=== PATIENT | male | born 1980 | race Caucasian/White ===

== ENCOUNTER 2022-04-19 19:40 | Outpatient (CLI) | payer MEDICARE, SELFPAY ==
[2022-04-19 20:37] LABS: D Dimer 0.87 ug/mIFEU (0-0.59)
== END 2022-04-19 19:41 | disposition home or self-care (01) ==
PROVIDERS: Visit Provider Nurse Practitioner Family
DX: I82.402 Acute embolism and thrombosis of unspecified deep veins of left lower extremity (principal)
CPT/HCPCS: 85378

== ENCOUNTER 2022-04-20 12:28 | Emergency (ER) | payer MEDICARE, SELFPAY ==
[2022-04-20 12:57] VITALS: BP 136/96; PULSE 109; RESP 14; O2SAT 97; BMI 36.1
--- NOTE | 2022-04-20 13:34 | ED_ITS ---
Documented by User: YARIEL Hilton 04/21/22 07:09 HPI - Extremity Problem General: Chief complaint: General Medical Stated complaint: states he needs a CT for a bloodclot in leg Time Seen by Provider: 04/20/22 13:12 Source: patient Mode of arrival: ambulatory Limitations: no limitations History of Present Illness: Patient is a nice 42-year-old male who presents to ED today after he was told to come here by [facility] for a possible chest CTA to evaluate for a PE based on recent left lower extremity ultrasound results. Patient tells me approximately a month ago he began having some pain to his left medial thigh. Patient states pain has moved distally and now has pain from the medial aspect of his thigh down to his medial lower leg and can feel a palpable cord. Patient states he was evaluated at [facility] and had an ultrasound performed. Results of the ultrasound are attached below: US/ROR venous duplex LE LT IMPRESSION: 1. No sign of deep vein thrombosis. 2. Superficial venous thrombosis involving the greater saphenous vein from about the level of the upper thigh distally to about mid calf region Patient states he was told to come to the ED for a CTA to evaluate for a PE. Patient states he is not having any chest pain, shortness of breath, or difficulty breathing. He has not noticed any exercise intolerance. MD Complaint: extremity pain Onset (ago): week(s) Pain Consistency: constant Location: left and lower extremity Radiation: none Relieving factors: nothing Exacerbating factors: nothing Associated symptoms: Reports no associated symptoms; Deny chest pain or fever(s) Review of Systems Const: Denies: fever(s), chills, body aches, fatigue or malaise Card: Denies: chest pain, palpitations, irregular heart rhythm, edema, lightheadedness, syncope, pre-syncope, dyspnea on exertion or orthopnea Resp: Denies: dyspnea Musc: Reports: extremity pain and extremity swelling; Denies: joint pain, joint swelling or joint redness Neuro: Denies: numbness in extremities, weakness in extremities or sensory changes Course Vital Signs: Vital signs: Vital Signs Temperature 97.7 F 04/20/22 14:11 Pulse Rate 73 04/20/22 14:11 Respiratory Rate 14 04/20/22 12:57 Blood Pressure 145/95 04/20/22 14:11 Pulse Oximetry 98 04/20/22 14:11 MDM - Extremity (Nontraumatic) Medical Decision Making Patient has a superficial venous thrombosis to his greater saphenous vein. Due to the length of thrombus and the proximity to the saphenofemoral junction the guidelines are to treat with full anticoagulation for 3 months. Given the fact that patient has no evidence for DVT on his US and he has no complaints of chest pain, SOB, or exercise intolerance and coupled with his normal vital signs-I would have an extremely low suspicion for PE at this time thus I do not feel CTA imaging is necessary. Return to ED precautions given. Lab Data : 04/20/22 13:58 04/20/22 13:58 Laboratory Results WBC 6.2 10^3/uL (4.0-10.0) 04/20/22 13:58 RBC 5.34 10^6/uL (4.1-5.3) H 04/20/22 13:58 Hgb 16.2 g/dL (11.7-16.6) 04/20/22 13:58 Hct 46.0 % (42.0-52.0) 04/20/22 13:58 MCV 86.1 fl (80-94) 04/20/22 13:58 MCH 30.3 pg (28.0-34.0) 04/20/22 13:58 MCHC 35.2 g/dL (30.0-36.0) 04/20/22 13:58 RDW 12.6 % (12.1-15.1) 04/20/22 13:58 Plt Count 229 10^3/cmm (130-400) 04/20/22 13:58 MPV 9.9 fL (7.4-10.4) 04/20/22 13:58 Neut % (Auto) 66.8 % 04/20/22 13:58 Lymph % (Auto) 22.6 % 04/20/22 13:58 Charlton % (Auto) 5.7 % 04/20/22 13:58 Eos % (Auto) 4.1 % 04/20/22 13:58 Baso % (Auto) 0.5 % 04/20/22 13:58 Neut # (Auto) 4.12 10^3/uL (1.8-7.7) 04/20/22 13:58 Lymph # (Auto) 1.4 10^3/uL (0.8-4.8) 04/20/22 13:58 Charlton # (Auto) 0.4 10^3/uL (0.2-0.9) 04/20/22 13:58 Eos # (Auto) 0.3 10^3/uL (0.0-0.8) 04/20/22 13:58 Baso # (Auto) 0.0 10^3/uL (0.0-0.1) 04/20/22 13:58 Nucleated RBC % (auto) 0 % 04/20/22 13:58 Nucleated RBCs # 0.0 /100WBC 04/20/22 13:58 Sodium 137 mmol/L (136-145) 04/20/22 13:58 Potassium 4.0 mmol/L (3.5-5.1) 04/20/22 13:58 Chloride 103 mmol/L (98-107) 04/20/22 13:58 Carbon Dioxide 25 mmol/L (22-29) 04/20/22 13:58 Anion Gap 13.0 (5-19) 04/20/22 13:58 BUN 13 mg/dL (6-20) 04/20/22 13:58 Creatinine 0.7 mg/dL (0.7-1.2) 04/20/22 13:58 GFR Calculation 124.9 mL/min (90-130) 04/20/22 13:58 Glucose 93 mg/dL (65-115) 04/20/22 13:58 Calculated Osmolality 284 mOsm/kg (285-295) L 04/20/22 13:58 Calcium 9.4 mg/dL (8.5-10.5) 04/20/22 13:58 Total Bilirubin 0.4 mg/dL (0.15-1.2) 04/20/22 13:58 AST 15 U/L (0-40) 04/20/22 13:58 ALT 21 U/L (0-41) 04/20/22 13:58 Alkaline Phosphatase 78 IU/L (40-130) 04/20/22 13:58 Total Protein 7.7 g/dL (6.6-8.7) 04/20/22 13:58 Albumin 4.6 g/dL (3.5-5.2) 04/20/22 13:58 Globulin 3.1 g/dL (1.3-4.6) 04/20/22 13:58 Discharge Plan Discharge Patient Disposition: Home Clinical Impression: Acute superficial venous thrombosis of left lower extremity Condition: Stable Prescriptions: New Eliquis DVT-PE Treat 30D Start 5 mg (74 tabs) tablets,dose pack See Rx Instructions .ROUTE .COMPLEX Qty: 74 0RF Rx Instructions: orally per package directions Discharge Orders: Discharge ED (Routine); Ordered 04/20/22 Ordered By: Lalita Palm Patient Instructions: Thrombophlebitis - Superficial Activity Restrictions/Additional Instructions: As we discussed guidelines for treatment of your superficial venous thrombosis due to the location and length as anticoagulation for a minimum of 3 months. You have been provided a prescription for Eliquis that you need to start imme diately. Please follow-up with your primary care provider in 1 to 2 weeks for further evaluation and possible repeat ultrasound imaging. Coding Level of Care Code ED Fabrication Technician for Chg Fwd Documented by User: Jakub Holley DO 04/29/22 16:05 HPI - Extremity Problem General: Chief complaint: General Medical Stated complaint: states he needs a CT for a bloodclot in leg Time Seen by Provider: 04/20/22 13:12 Course Vital Signs: Vital signs: Vital Signs Temperature 97.7 F 04/20/22 14:11 Pulse Rate 73 04/20/22 14:11 Respiratory Rate 14 04/20/22 12:57 Blood Pressure 145/95 04/20/22 14:11 Pulse Oximetry 98 04/20/22 14:11 MDM - Extremity (Nontraumatic) Medical Decision Making Patient has a superficial venous thrombosis to his greater saphenous vein. Due to the length of thrombus and the proximity to the saphenofemoral junction the guidelines are to treat with full anticoagulation for 3 months. Given the fact that patient has no evidence for DVT on his US and he has no complaints of chest pain, SOB, or exercise intolerance and coupled with his normal vital signs-I would have an extremely low suspicion for PE at this time thus I do not feel CTA imaging is necessary. Return to ED precautions given. Chart reviewed and patient discussed with midlevel. Agree with assessment and plan. Lab Data : 04/20/22 13:58 04/20/22 13:58 Laboratory Results WBC 6.2 10^3/uL (4.0-10.0) 04/20/22 13:58 RBC 5.34 10^6/uL (4.1-5.3) H 04/20/22 13:58 Hgb 16.2 g/dL (11.7-16.6) 04/20/22 13:58 Hct 46.0 % (42.0-52.0) 04/20/22 13:58 MCV 86.1 fl (80-94) 04/20/22 13:58 MCH 30.3 pg (28.0-34.0) 04/20/22 13:58 MCHC 35.2 g/dL (30.0-36.0) 04/20/22 13:58 RDW 12.6 % (12.1-15.1) 04/20/22 13:58 Plt Count 229 10^3/cmm (130-400) 04/20/22 13:58 MPV 9.9 fL (7.4-10.4) 04/20/22 13:58 Neut % (Auto) 66.8 % 04/20/22 13:58 Lymph % (Auto) 22.6 % 04/20/22 13:58 Charlton % (Auto) 5.7 % 04/20/22 13:58 Eos % (Auto) 4.1 % 04/20/22 13:58 Baso % (Auto) 0.5 % 04/20/22 13:58 Neut # (Auto) 4.12 10^3/uL (1.8-7.7) 04/20/22 13:58 Lymph # (Auto) 1.4 10^3/uL (0.8-4.8) 04/20/22 13:58 Charlton # (Auto) 0.4 10^3/uL (0.2-0.9) 04/20/22 13:58 Eos # (Auto) 0.3 10^3/uL (0.0-0.8) 04/20/22 13:58 Baso # (Auto) 0.0 10^3/uL (0.0-0.1) 04/20/22 13:58 Nucleated RBC % (auto) 0 % 04/20/22 13:58 Nucleated RBCs # 0.0 /100WBC 04/20/22 13:58 Sodium 137 mmol/L (136-145) 04/20/22 13:58 Potassium 4.0 mmol/L (3.5-5.1) 04/20/22 13:58 Chloride 103 mmol/L (98-107) 04/20/22 13:58 Carbon Dioxide 25 mmol/L (22-29) 04/20/22 13:58 Anion Gap 13.0 (5-19) 04/20/22 13:58 BUN 13 mg/dL (6-20) 04/20/22 13:58 Creatinine 0.7 mg/dL (0.7-1.2) 04/20/22 13:58 GFR Calculation 124.9 mL/min (90-130) 04/20/22 13:58 Glucose 93 mg/dL (65-115) 04/20/22 13:58 Calculated Osmolality 284 mOsm/kg (285-295) L 04/20/22 13:58 Calcium 9.4 mg/dL (8.5-10.5) 04/20/22 13:58 Total Bilirubin 0.4 mg/dL (0.15-1.2) 04/20/22 13:58 AST 15 U/L (0-40) 04/20/22 13:58 ALT 21 U/L (0-41) 04/20/22 13:58 Alkaline Phosphatase 78 IU/L (40-130) 04/20/22 13:58 Total Protein 7.7 g/dL (6.6-8.7) 04/20/22 13:58 Albumin 4.6 g/dL (3.5-5.2) 04/20/22 13:58 Globulin 3.1 g/dL (1.3-4.6) 04/20/22 13:58 Discharge Plan Discharge Patient Disposition: Home Clinical Impression: Acute superficial venous thrombosis of left lower extremity Condition: Stable Prescriptions: New Eliquis DVT-PE Treat 30D Start 5 mg (74 tabs) tablets,dose pack See Rx Instructions .ROUTE .COMPLEX Qty: 74 0RF Rx Instructions: orally per package directions Discharge Orders: Discharge ED (Routine); Ordered 04/20/22 Ordered By: Lalita Palm Patient Instructions: Thrombophlebitis - Superficial Activity Restrictions/Additional Instructions: As we discussed guidelines for treatment of your superficial venous thrombosis due to the location and length as anticoagulation for a minimum of 3 months. You have been provided a prescription for Eliquis that you need to start immediately. Please follow-up with your primary care provider in 1 to 2 weeks for further evaluation and possible repeat ultrasound imaging. Coding Level of Care Code ED Fabrication Technician for Fernando Bhatti
[2022-04-20 14:03] LABS: Basophils % 0.5 %; Eosinophils # 0.3 10^3/uL (0.0-0.8); Eosinophils % 4.1 %; Hemoglobin 16.2 g/dL (11.7-16.6); Lymphocytes # 1.4 10^3/uL (0.8-4.8); Lymphocytes % 22.6 %; Mean Corpuscular HGB Conc 35.2 g/dL (30.0-36.0); Mean Corpuscular Hemoglobin 30.3 pg (28.0-34.0); Mean Corpuscular Volume 86.1 fl (80-94); Mean Platelet Volume 9.9 fL (7.4-10.4); Monocytes # 0.4 10^3/uL (0.2-0.9); Monocytes % 5.7 %; Neutrophils # 4.12 10^3/uL (1.8-7.7); Neutrophils % 66.8 %; Nucleated Red Blood Cells % 0 %; Platelet Count 229 10^3/cmm (130-400); Red Blood Count 5.34 10^6/uL (4.1-5.3); Red Cell Distribution Width 12.6 % (12.1-15.1); White Blood Count 6.2 10^3/uL (4.0-10.0)
[2022-04-20 14:11] VITALS: BP 145/95; PULSE 73; TEMP 36.5; O2SAT 98
[2022-04-20 15:21] LABS: Alanine Aminotransferase 21 U/L (0-41); Albumin Level 4.6 g/dL (3.5-5.2); Alkaline Phosphatase 78 IU/L (40-130); Aspartate Amino Transferase 15 U/L (0-40); Blood Urea Nitrogen 13 mg/dL (6-20); Calcium 9.4 mg/dL (8.5-10.5); Carbon Dioxide 25 mmol/L (22-29); Chloride 103 mmol/L (98-107); Globulin 3.1 g/dL (1.3-4.6); Glomerular Filtration Rate 124.9 mL/min (90-130); Glucose 93 mg/dL (65-115); Osmolality Calculated 284 mOsm/kg (285-295); Sodium 137 mmol/L (136-145); Total Bilirubin 0.4 mg/dL (0.15-1.2); Total Protein 7.7 g/dL (6.6-8.7)
== END 2022-04-20 16:39 | disposition home or self-care (01) ==
PROVIDERS: Emergency Provider Physician Assistant
DX: I82.812 Embolism and thrombosis of superficial veins of left lower extremity (principal); M79.89 Other specified soft tissue disorders; M79.662 Pain in left lower leg
CPT/HCPCS: 80053; 85025; 99283

== ENCOUNTER 2022-09-13 11:56 | Outpatient (CLI) | payer MEDICARE, SELFPAY ==
--- NOTE | 2022-09-13 | MR_ITS ---
WS: [id number] MRI LUMBAR SPINE WITH AND WITHOUT CONTRAST. HISTORY: MS HISTORY, back pain. COMPARISON: None available. TECHNIQUE: Sagittal and axial multisequence imaging is submitted. Postcontrast imaging, MultiHance 20 mL IV. Seen on this sagittal survey there is at slight increased signal in the mid thoracic cord at the T6-7 level. May be related to artifact, mild demyelinating disease or a small syrinx. Normal lumbar alignment with no compression fractures or marrow edema. Mild disc space narrowing and desiccation at L4-5 and L5-S1. No fractures. Conus terminates normally at L1-2 disc level. L1-L2: Normal. L2-L3: Normal. L3-L4: Mild ligamentum flavum and facet arthritis. Shallow LEFT foraminal disc protrusion. L4-L5: Mild annular disc bulging. Mild ligamentum flavum and facet arthritis. Mild encroachment upon the lateral recesses and the RIGHT traversing L5 nerve root. L5-S1: Moderate RIGHT paracentral disc protrusion contacts the RIGHT S1 nerve root and displaces the posterior. Disc is slightly extruded posterior and inferior to the disc space. There is also very sli ght contact without displacement on the LEFT S1 nerve root. Postcontrast images are negative for active demyelinating lesion, discitis or osteomyelitis. Mild enh ancement surrounding the L3-4 and L4-5 facet joints from synovitis. MR/MR lumbar spine wo/w con [id number] IMPRESSION: 1. No high-grade stenosis or enhancing mass. 2. Moderate RIGHT paracentral disc protrusion at L5-S1 extends caudad to the d isc level contacting and displacing the RIGHT S1 nerve root. Very minimal conta ct with no displacement on the LEFT S1 nerve root. 3. Shallow LEFT foraminal disc protrusion at L3-4. 4. Mild facet joint synovitis at L3-4 and L4-5. 5. No enhancing lesions within the conus.
--- NOTE | 2022-09-13 | MR_ITS ---
WS: [id number] MRI BRAIN WITH AND WITHOUT CONTRAST HISTORY: MS HISTORY COMPARISON: None available. TECHNIQUE: Multiplanar imaging performed through the brain with MultiHance 20 ml's IV. No acute infarcts or hemorrhage. There are several T2 and FLAIR signal hyperintensities in a pericall osal distribution. Some of these white matter lesions are perpendicular to the corpus callosum consis tent with demyelinating lesions. Subtle areas of demyelination involving the medial LEFT temporal lob e and adjacent to the posterior horns of the lateral ventricles. On the postcontrast images none of t hese demyelinating lesions enhance. No black holes. No susceptibility artifacts or prior lacunar infarcts. Ventricles and extra-axial spaces are normal. Clivus and pituitary gland are normal. Visualized posterior fossa and brainstem are also normal. Postcontrast images are negative for masses or vascular malformations. Dural venous sinuses are normal. Paranasal sinuses: Well aerated with no significant disease. Mastoid air cells: Normal. Calvarium and scalp: Normal. MR/MR head wo/w con [id number] IMPRESSION: 1. No acute infarcts or hemorrhage. 2. Mild burden of demyelinating plaques scattered in a pericallosal and perive ntricular white matter distribution. None of these plaques enhance.
--- NOTE | 2022-09-13 | MR_ITS ---
WS: [id number] MRI CERVICAL SPINE with and without contrast. HISTORY: MS. COMPARISON: None available. Technique: Multiplanar, multisequence pre and postcontrast imaging of the cervical spine. MultiHance 20 mL IV. Mild straightening of the normal cervical lordosis. Disc spaces are mildly narrowed throughout the cervical spine with small vertebral body osteophytes. No inferior displacement of the cerebellar tonsils. No definite signal abnormalities within the cord. Only on the STIR signal is some very slight increased signal in the upper thoracic cord which could be a syrinx. Similar findings were noted within the midthoracic cord on the survey of the lumbar spin e. Craniocervical junction, C1 and C2 relationship, odontoid process and soft tissues are normal. C2-C3: Normal. C3-C4: Diffuse osteophytic ridging. C4-C5: Mild osteophytic ridging and disc bulging. Very mild RIGHT foraminal narrowing. Small central disc protrusion. C5-C6: Mild disc bulging and facet joint arthritis. Small bilateral foraminal disc protrusions. Mild RIGHT foraminal stenosis. C6-C7: Central disc protrusion. Mild osteophytic ridging and mild foraminal narrowing. C7-T1: Small foraminal osteophytes. No enhancing lesions are noted in the cervical cord. No atrophy or enlargement. MR/MR cervical spine wo/w [id number] IMPRESSION: 1. No high-grade central or foraminal stenosis. 2. Mild foraminal narrowing as described above due to combination of osteophyt es and disc and facet disease. 3. STIR sequence in the upper thoracic spine is increased T2 signal in the laurence tral cord. This could be an artifact or syrinx. Recommend follow-up MRI thoraci c spine with and without contrast. 4. No demyelinating lesions within the cervical cord.
[2022-09-13] MEDS: gadobenate dimeglumine 20 mL vial IV (14:09)
== END 2022-09-13 11:57 | disposition home or self-care (01) ==
PROVIDERS: PCP Physician Assistant; Visit Provider Physician Assistant
DX: G35 Multiple sclerosis (principal); M51.27 Other intervertebral disc displacement, lumbosacral region; M51.26 Other intervertebral disc displacement, lumbar region; M65.9 Synovitis and tenosynovitis, unspecified; M25.78 Osteophyte, vertebrae
CPT/HCPCS: 70553; 72156; 72158

== ENCOUNTER → 2022-11-02 10:11 | Outpatient (BNVA) | payer MEDICARE, OTHER, SELFPAY | PROVIDERS: PCP Physician Assistant; Visit Provider Specialist | DX: G35 Multiple sclerosis (principal); R29.818 Other symptoms and signs involving the nervous system; Z11.59 Encounter for screening for other viral diseases | CPT/HCPCS: 36415; 80048; 86705; 86706; 86708; 86709; 87340; 99205 ==

== ENCOUNTER → 2024-03-29 15:19 | Outpatient (BNVA) | payer MEDICARE, OTHER, SELFPAY | PROVIDERS: PCP Physician Assistant; Visit Provider Specialist | DX: G35 Multiple sclerosis (principal); R51.9 Headache, unspecified; H93.19 Tinnitus, unspecified ear | CPT/HCPCS: 99214; 99215 ==

== ENCOUNTER 2024-04-24 07:08 | Outpatient (CLI) | payer MEDICARE, OTHER, SELFPAY ==
--- NOTE | 2024-04-24 07:15 | MR_ITS ---
WS: [id number] MRI THORACIC SPINE without contrast HISTORY: G35 - Multiple sclerosis COMPARISON: None available. TECHNIQUE: Multiplanar sequences are performed in sagittal and axial planes. Straightening of the normal cervical lordosis. Increasing kyphosis centered at the thoracolumbar junc tion. Mild disc space narrowing most significant in the mid thoracic spine with small disc bulges. There is a central cord syrinx beginning at T3 and extending to the inferior endplate of T7. Transver se diameter is 2 mm. Otherwise no signal abnormalities are identified. There is no cord atrophy or en largement. T1-2: Normal. T2-3: Normal. T3-4: Normal. T4-5: Normal. T5-6: Mild facet arthritis. No stenosis. T6-7: Mild facet arthritis. No stenosis. T7-8: LEFT paracentral disc protrusion with bilateral facet arthritis and foraminal narrowing. T8-9: Osteophytic ridging with moderate LEFT paracentral disc protrusion extending into the subarticu lar recess. There is very slight contact on the LEFT lateral thecal sac. Mild facet arthritis and for aminal stenosis. T9-10: Small LEFT paracentral disc protrusion and small osteophytes. Facet joint arthritis. Deformity of the LEFT lateral thoracic cord by the disc. Mild to moderate foraminal stenosis. T10-11: Mild facet arthritis. T11-12: Normal. Paravertebral soft tissues are negative. MR/MR thoracic spin wo con* [id number] IMPRESSION: 1. 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 Transverse diameter of 2 mm. This can be further evaluated with postcontrast imaging. 2. No cord enlargement or atrophy. 3. T7-8: LEFT paracentral disc protrusion and facet arthritis with mild forami nal narrowing. 4. T8-9: Moderate LEFT paracentral disc protrusion with slight contact on the thoracic cord and mild foraminal stenosis. 5. T9-10: Small LEFT paracentral disc protrusion. Mild to moderate foraminal s tenosis.
== END 2024-04-24 07:09 | disposition home or self-care (01) ==
PROVIDERS: PCP Physician Assistant; Visit Provider Specialist
DX: G35 Multiple sclerosis (principal); M47.814 Spondylosis without myelopathy or radiculopathy, thoracic region; M51.24 Other intervertebral disc displacement, thoracic region; M48.04 Spinal stenosis, thoracic region; M25.78 Osteophyte, vertebrae; M43.8X4 Other specified deforming dorsopathies, thoracic region; M40.205 Unspecified kyphosis, thoracolumbar region; M53.84 Other specified dorsopathies, thoracic region
CPT/HCPCS: 72146

== ENCOUNTER → 2024-05-23 13:52 | Outpatient (BNVA) | payer OTHER, MEDICARE, SELFPAY | PROVIDERS: PCP Physician Assistant; Visit Provider Orthopaedic Surgery | DX: G35 Multiple sclerosis (principal) | CPT/HCPCS: 72072; 72110 ==

== ENCOUNTER → 2024-06-04 14:09 | Outpatient (BNVA) | payer MEDICARE, OTHER, SELFPAY | PROVIDERS: PCP Physician Assistant; Visit Provider Specialist | DX: G35 Multiple sclerosis (principal); G08 Intracranial and intraspinal phlebitis and thrombophlebitis; M51.26 Other intervertebral disc displacement, lumbar region; R56.9 Unspecified convulsions; G43.711 Chronic migraine without aura, intractable, with status migrainosus; M54.81 Occipital neuralgia | CPT/HCPCS: 64405; 64450; 99215; J1010; J3490 ==

== ENCOUNTER 2024-06-04 17:31 | Observation (INO) | payer OTHER, MEDICARE, SELFPAY ==
[2024-06-04 17:44] VITALS: BP 156/105; PULSE 70; RESP 16; TEMP 36.6; O2SAT 98
[2024-06-04 18:17] VITALS: BP 134/107
--- NOTE | 2024-06-04 18:25 | W.ED.WEAKNES ---
HPI - Weakness General: Chief complaint: Weakness Stated complaint: Dr. Amanda sent for CT Bleeding on Brain Time Seen by Provider: 06/04/24 18:24 History of Present Illness: Patient presents to the ER with new right-sided leg balancing when he walks, described as moving walking where the leg is less weight and bounces higher than the left leg. Patient has good strength throughout. Patient woke up this morning approximately 8:00 with this symptom. Patient is also having some word finding difficulties. Patient was diagnosed last week possibly with a CVA and a seizure in [place] he was sent to [facility] in [place] where they started him on Eliquis. Patient saw Dr. Amanda today in the clinic she performed what sounds like an occipital nerve block due to a left-sided headache and sent the patient over here for further evaluation and treatment of this new onset right leg bouncing. This was discussed with Dr. Amanda we will get a CT scan without contrast and call her for further recommendations. Review of Systems General: Reports: 10 or more systems reviewed and unremarkable except in HPI and below PFSH ED PFSH: Medical History (Updated 06/04/24 @ 20:15 by Yovanny Lockett MD) Occipital neuralgia of left side Chronic migraine without aura, intractable, with status migrainosus Focal seizure Thrombosis of lateral venous sinus Multiple sclerosis Social History Smoking and tobacco/nicotine status: never used tobacco/nicotine Physical Exam Const: COMMON NORMALS: no acute distress, average body habitus, patient oriented x3, no limitations, healthy appearing, alert and well nourished HENMT: COMMON NORMALS: normocephalic, atraumatic, hearing grossly normal bilaterally, external ears normal, Normal external nose present and moist oral mucous membranes HEAD & SCALP: normocephalic and atraumatic NOSE: Normal external nose present EXTERNAL EAR: Yes external ears normal Eye: COMMON NORMALS: Equal, round and reactive pupils present, EOMs intact bilaterally, conjunctivae normal and no scleral icterus CONJUNCTIVA: Yes conjunctivae normal PUPIL: Yes Equal, round and reactive pupils present Neck/C-Spine: COMMON NORMALS: full ROM, no lymphadenopathy, supple, no meningeal signs, no JVD and Thyroid normal THYROID: Thyroid normal Chest: COMMONS NORMALS: normal inspection of the chest and normal palpation of entire chest wall Resp: COMMON NORMALS: normal respiratory effort, No retractions, No use of accessory muscles and clear to auscultation bilaterally AUSCULTATION: clear to auscultation bilaterally Cardio: COMMON NORMALS: no JVD, regular rate, regular rhythm, S1 normal heart sound present, S2 normal heart sound present, No gallops present (Cardio), No clicks present (Cardio), No murmurs present (Cardio) and No rub (Cardio) RATE: regular rate RHYTHM: regular rhythm HEART SOUNDS: S1 normal heart sound present and S2 normal heart sound present GI: COMMON NORMALS: Normal to inspection, nondistended, normoactive bowel sounds present, Soft to palpation, non-tender, No hepatosplenomegaly present and no masses PALPATION: Yes Soft to palpation and Yes No hepatosplenomegaly present Extremity: NARRATIVE EXTREMITY EXAM: Good strength bilaterally symmetrical in all extremities, when patient walks his right leg bounces like it has less gravity than his left. Otherwise normal. Neuro: COMMON NORMALS: patient oriented x3 SENSORIUM/ORIENTATION: Yes alert MENINGEAL SIGNS: Yes no meningeal signs Course Vital Signs: Vital signs: Vital Signs Temperature 97.9 F 06/04/24 17:44 Pulse Rate 73 06/04/24 20:09 Respiratory Rate 16 06/04/24 20:09 Blood Pressure 119/73 06/04/24 20:09 Pulse Oximetry 95 06/04/24 20:09 Oxygen Delivery Me thod Room Air 06/04/24 18:17 MDM - Weakness Medical Decision Making Discussed case with Dr. Amanda, we will get a noncontrast CT scan of the head and alert her of the findings. Dr. Amanda came to the ER to reevaluate patient and look at the images personally. She said the infarct is involving, she wanted a CTA with venous phase however this was unable to be obtained at this time due to potential lack of protocol so we will admit the patient to the hospitalist to get an MRI/MR V in the morning, Dr. Amanda will be consulting. Discussed this case with Dr. Vargas agreed to place patient in [facility] obs Lab Data Radiology Impressions Head CT 06/04/24 18:27 IMPRESSION: Hypoattenuating focus within the left parieto-occipital lobe, concerning for acute infarct. Brain MRI is recommended for further evaluation. COMMENT: THIS REPORT CONTAINS FINDINGS THAT MAY BE CRITICAL TO PATIENT CARE. The exam findings were verbally communicated by me to Shakir Carrera via telephone conference at 7:14 PM CDT on 06/04/2024. The findings were acknowledged and understood. All radiology interpretation(s) finalized by discharge Discharge Plan Discharge Patient Disposition: Placed in Observation Admit Provider: Yovanny Lockett Clinical Impression: Acute CVA (cerebrovascular accident) Coding Level of Care Code ED Museum Specialist for Fernando Bhatti
--- NOTE | 2024-06-04 18:27 | CTR_ITS ---
PROCEDURE INFORMATION: Exam: CT Head Without Contrast Exam date and time: 06/04/2024 6:59 PM Age: 44 years old Clinical indication: Weakness, extremity; Right; Additional info: New rle weakness, recent left lat thrombuscva, on eliquis TECHNIQUE: Imaging protocol: Computed tomography of the head without contrast. Radiation optimization: All CT scans at this facility use at least one of these dose optimization techniques: automated exposure control; mA and/or kV adjustment per patient size (includes targeted exams where dose is matched to clinical indication); or iterative reconstruction. COMPARISON: MR head wo/w con [id number] 09/13/2022 3:48 PM RADIATION DOSE METRICS: Total DLP (mGy-cm): 1147 FINDINGS: Brain: Hypoattenuating focus within the left parieto-occipital lobe, concerning for acute infarct. Cerebral ventricles: No ventriculomegaly. Paranasal sinuses: Visualized sinuses are unremarkable. No fluid levels. Mastoid air cells: Visualized mastoid air cells are well aerated. Bones: Unremarkable. No acute fracture. Soft tissues: Unremarkable. CT/CT head wo con* [id number] IMPRESSION: Hypoattenuating focus within the left parieto-occipital lobe, concerning for acute infarct. Brain MRI is recommended for further evaluation. COMMENT: THIS REPORT CONTAINS FINDINGS THAT MAY BE CRITICAL TO PATIENT CARE. The exam findings were verbally communicated by me to Shakir Carrera via telephone conference at 7:14 PM CDT on 06/04/2024. The findings were acknowledged and understood.
[2024-06-04 20:09] VITALS: BP 119/73; PULSE 73; RESP 16; O2SAT 95
--- NOTE | 2024-06-04 20:14 | P.HP_ITS ---
Providers/Chief Complaint Primary Care Provider: Fatou Siddiqui Chief Complaint: Dr. Amanda sent for CT Bleeding on Brain History of Present Illness Eriberto Del Toro is a 44 year old male who was transferred to [facility] for recent history of stroke, he was discharged on Monday, patient is on Eliquis, atorvastatin, Keppra, presented to Dr. Amanda's clinic as follow-up appointment, Dr. Amanda sent him to the ER for further evaluation of his right-sided high-stepping gait, patient is also experiencing word finding difficulty. If symptoms started this morning. CT head is showing left parietal occipital infarct Patient is stating that his headache is 4/10, as per the he has been dealing with headache for the last 6 weeks Review of Systems Const: Denies: fever(s) Eyes: Denies: change in vision ENMT: Denies: throat pain Card: Denies: chest pain Resp: Denies: dyspnea GI: Denies: abdominal pain Medications/Allergies Home Medications Medication Instructions Recorded Confirmed Last Taken Type amitriptyline 25 mg tablet 25 mg PO DAILY #90 tabs 03/29/24 06/04/24 Unknown Rx ocrelizumab 30 mg/mL intravenous 300 mg (10 mL) IV ONCE #10 mL 03/29/24 06/04/24 Unknown Rx solution (Ocrevus) apixaban 5 mg tablet (Eliquis) 5 mg PO BID 06/04/24 06/04/24 Unknown History atorvastatin 80 mg tablet 80 mg PO DAILY 06/04/24 06/04/24 Unknown History levetiracetam 750 mg 1,500 mg (2 x 750 mg) PO DAILY 06/04/24 06/04/24 Unknown Rx tablet,extended release 24 hr #180 tabs (Keppra XR) ondansetron HCl 4 mg tablet 4 mg PO DAILY #7 tabs 06/04/24 06/04/24 Unknown Rx topiramate 100 mg tablet (Topamax) 100 mg PO DAILY #30 tabs 06/04/24 06/04/24 Unknown Rx Allergies Allergy/AdvReac Type Severity Reaction Status Date / Time Gadolinium-Containing Allergy ADR-Vomitin Verified 06/04/24 17:51 Contrast Medi g latex Allergy ALGY-Rash Verified 06/04/24 17:50 PFSH Acute PFSH: Medical History Occipital neuralgia of left side Chronic migraine without aura, intractable, with status migrainosus Focal seizure Thrombosis of lateral venous sinus Multiple sclerosis Social History Smoking and tobacco/nicotine status: never used tobacco/nicotine Vitals/I&O/Wt Last Vital Signs Temp 97.9 F 06/04/24 17:44 Pulse 73 06/04/24 20:09 Resp 16 06/04/24 20:09 BP 119/73 06/04/24 20:09 Pulse Ox 95 06/04/24 20:09 O2 Del Method Room Air 06/04/24 18:17 Weight last 48 hrs Weight 120.202 kg Physical Exam Narrative: Awake alert Word finding difficulty Complaining of headache No sign of seizure No sign of meningitis Afebrile hemodynamically stable Nonfocal neuroexam Pleasant at the bedside I do not appreciate any signs of foot drop Patient is able to move his extremities No slurring of speech A&P Assessment and plan (1) Acute CVA (cerebrovascular accident): Plan Acute left parietal occipital infarct Patient is already on Eliquis Requested MRI MRV in the morning Patient takes Keppra for his seizures I will resume his Keppra and Eliquis Amitriptyline and Topamax has been discontinued by [facility] neurologist I will only request PT there is no need of speech therapy or occupational therapy at this point Requested protein C&S antigen Patient has had recent workup, will ask for records Full code Cardiac diet Chronic headache, patient stating that it comes in the form of waves, it goes from high intensity to low intensity currently 06/22, has been using Tylenol and ibuprofen on an alternating basis Attestations Medical Necessity Statement*: Anticipating discharge within 48 hours Diagnoses Acute CVA (cerebrovascular accident) I63.9
[2024-06-04 20:54] LABS: Erythrocyte Sedimentation Rate 7 mm/hr (0-10)
[2024-06-04 20:58] LABS: D Dimer 0.82 ug/mLFEU (0-0.59)
[2024-06-04 21:10] VITALS: BP 119/73; PULSE 73; RESP 16; TEMP 36.6; O2SAT 95
[2024-06-04] MEDS: levETIRAcetam 500 mg Tablet 750 MG PO (22:15)
[2024-06-04] MEDS: apixaban 5 mg Tablet PO (22:15)
[2024-06-04 22:26] VITALS: BMI 35.9
[2024-06-05 00:37] LABS: Vitamin B12 608 pg/mL (232-1245)
[2024-06-05] MEDS: acetaminophen 500 mg Tablet PO ×2 (03:37→08:16)
[2024-06-05 08:00] VITALS: BP 128/96; PULSE 75; RESP 16; TEMP 37.1; O2SAT 95
[2024-06-05 08:04] LABS: Anion Gap 14.9 (5-19); Blood Urea Nitrogen 17 mg/dL (6-20); Calcium 9.1 mg/dL (8.5-10.5); Carbon Dioxide 22 mmol/L (22-29); Chloride 106 mmol/L (98-107); Creatinine Clr Calc Pharmacy 161.0208; Glucose 106 mg/dL (65-115); Magnesium 1.9 mg/dL (1.7-2.3); Osmolality Calculated 290 mOsm/kg (285-295); Phosphorus 3.9 mg/dL (2.5-4.5); Potassium 3.9 mmol/L (3.5-5.1); Sodium 139 mmol/L (136-145)
[2024-06-05 08:09] VITALS: PULSE 72; RESP 16; O2SAT 96
[2024-06-05] MEDS: levETIRAcetam 500 mg Tablet 750 MG PO ×2 (08:13→17:06)
[2024-06-05] MEDS: atorvastatin 40 mg Tablet PO (08:14)
[2024-06-05] MEDS: sennosides-docusate Tablet 1 TAB PO (08:14)
[2024-06-05] MEDS: apixaban 5 mg Tablet PO ×2 (08:14→17:06)
[2024-06-05 08:21] VITALS: BP 134/84; PULSE 79; RESP 17; TEMP 36.8; O2SAT 97
--- NOTE | 2024-06-05 09:22 | PC.PHAR ---
Addendum entered by Latoya Lauren 06/05/24 09:23: FROM GADOLINIUM CONTRAST Original Note: PT STATES NEEDS HIS ONDANSETRON 4 MG AND BENADRYL PRIOR TO MRI DUE TO NAUSEA AND VOMITING.
--- NOTE | 2024-06-05 10:30 | MR_ITS ---
WS: [id number] MRI HEAD WITHOUT CONTRAST TECHNIQUE: Sagittal T1, T2 axial, T2 axial FLAIR, axial and coronal T1 images, axial susceptibility w eighted imaging, axial diffusion weighted images, and coronal T2 images were obtained. CLINICAL INFORMATION: Acute worsening left-sided CVA COMPARISON: MRI 09/13/[address] 06/04/2024 FINDINGS: Small amount of restricted diffusion in the LEFT anterolateral temporal lobe. Thrombosis of the LEFT transverse and sigmoid sinus and vein of Vera. Increased T2 signal normality involving the LEFT temp oral lobe with associated subacute blood products compatible with hemorrhagic venous infarct. Moderat e diffuse edema throughout the LEFT temporal lobe with mild associated mass effect. Effacement of the LEFT temporal horn and partial effacement of the LEFT ambient cistern. Suprasellar cistern remains p atent. Small amount of scattered T1 hyperintense subacute blood products. No large intraparenchymal h ematoma. No hydrocephalus. Mild patchy supratentorial white matter changes compatible with history of demyelin ating disease. This appears relatively stable compared to 2021. Normal vascular flow voids at the skull base. No extra-axial fluid collections. Paranasal sinuses are well aerated. Mastoid air cells are well aerated. Normal optic chiasm and pituitary infundibulum. MR/MR head wo con* [id number] IMPRESSION: 1. Suspected subacute venous infarct within the LEFT temporal lobe with modera te diffuse edema and a small amount of scattered T1 hyperintense subacute blood products. No large intraparenchymal hematoma. 2. Mild localized mass effect in the LEFT temporal lobe with effacement of the LEFT temporal horn. No hydrocephalus. Slight effacement of the LEFT ambient ci de [place]. 3. Thrombosed LEFT sigmoid and transverse sinuses. Vein of Vera also appears thrombosed. 4. Mild patchy supratentorial white matter changes compatible with history of demyelinating disease appears relatively stable since 2021. Message LEFT for Dr. Martines with scrap crane operator at 06/05/2024 11:38 AM.
--- NOTE | 2024-06-05 10:30 | MR_ITS ---
WS: [id number] MR VENOGRAM WITHOUT GADOLINIUM ENHANCEMENT. INDICATION: CVA. History of seizures. Mass. TECHNIQUE: MR venogram without gadolinium enhancement. FINDINGS: Recent or acute appearing thrombosis of the distal LEFT jugular vein at the skull base with complete thrombosis of the sigmoid and transverse sinuses. In addition the vein of Vera overlying t he LEFT temporal lobe appears thrombosed. Normal sagittal sinus. Straight sinus appears patent. Alexandrea l RIGHT transverse and sigmoid sinuses. Internal cerebral veins appear patent. IMPRESSION: 1. Acute appearing thrombosis of the distal LEFT jugular vein extending into the sigmoid and trans verse sinus with complete thrombosis. 2. The vein of Vera appears thrombosed overlying the LEFT temporal lobe. 3. Remainder of the venous sinuses appear patent. Message LEFT for Dr. Martines at 06/05/2024 11:47 AM.
--- NOTE | 2024-06-05 10:31 | PC.OT ---
OT EVALUATION ATTEMPTED; PATIENT IS AT MRI AND UNAVAILABLE AT THIS TIME
[2024-06-05 11:34] VITALS: BP 123/78; PULSE 58; RESP 14; TEMP 36.6; O2SAT 98
[2024-06-05 11:53] LABS: Basophils % 0.4 %; Eosinophils # 0.5 10^3/uL (0.0-0.8); Eosinophils % 5.1 %; Hematocrit 43.9 % (37-53); Lymphocytes % 21.6 %; Mean Corpuscular HGB Conc 33.9 g/dL (30-55); Mean Corpuscular Hemoglobin 30.3 pg (27-33); Mean Corpuscular Volume 89.4 fl (82-101); Mean Platelet Volume 10.6 fL (7.4-10.4); Monocytes # 0.5 10^3/uL (0.2-0.9); Monocytes % 5.5 %; Neutrophils # 6.16 10^3/uL (1.8-7.7); Neutrophils % 67.1 %; Nucleated Red Blood Cells % 0 %; Platelet Count 218 10^3/cmm (157-399); Red Blood Count 4.91 10^6/uL (3.85-5.65); Red Cell Distribution Width 13.3 % (12.1-15.1)
[2024-06-05 11:58] LABS: Estmated Average Glucose 100; Hemoglobin A1C 5.1 % (4.0-6.0)
[2024-06-05 12:11] LABS: Chol HDL Ratio 5.57 mg/dL (1.0-5.00); Cholesterol 206 mg/dL (0-200); HDL Cholesterol 37 mg/dL (60-100); Iron 54 ug/dL (59-158); LDL Cholesterol Calculated 136 mg/dL (50-129); Percent Saturation 17.7 % (20-50); Thyroid Stimulating Hormone 1.77 uIU/mL (0.27-4.20); Total Iron Binding Capacity 305 mcg/dl; Triglycerides 163 mg/dL (0-150); Unsaturated Iron Binding 251 ug/dL (112-347); VLDL Cholestrol Calculation 33 mg/dL (0-30)
--- NOTE | 2024-06-05 13:50 | PM.DCS ---
Discharge Providers Date of Admission: 06/04/24 20:16 Date of Discharge: June 05, 2024 Attending Provider at Admission: Yovanny Lockett MD Attending Provider at Discharge: Valentin Nelson MD Consults: Neurology: Dr. Amanda Primary Care Provider: Fatou Siddiqui Diagnoses at Discharge Discharge Diagnosis (1) Acute CVA (cerebrovascular accident): Status: Acute Reason for Visit Reason for Visit: Dr. Amanda sent for CT Bleeding on Brain Brief History: History as per HPI: Eriberto Del Toro is a 44 year old male who was transferred to [facility] for recent history of stroke, he was discharged on Monday, patient is on Eliquis, atorvastatin, Keppra, presented to Dr. Amanda's clinic as follow-up appointment, Dr. Amanda sent him to the ER for further evaluation of his right-sided high-stepping gait, patient is also experiencing word finding difficulty. If symptoms started this morning. CT head is showing left parietal occipital infarct Patient is stating that his headache is 4/10, as per the he has been dealing with headache for the last 6 weeks Hospital Course Hospital Course Patient was admitted to renal for further evaluation and management. Neurology was consulted. He was seen by PT and speech evaluation. MRI along with MRV brain was done which showed concerns for acute appearing thrombosis of left jugular vein extending into sigmoid and transverse sinus with complete thrombosis. Results of the MRI were compared with previous scan done in [facility] with Dr. Amanda which showed no concerns for further worsening. Further workup for concerns for significant recurrent venous thrombosis were sent out including JACY panel along with protein C and protein S levels. PT and speech evaluation recommended patient to have home exercise program along with outpatient follow-up with speech therapy. He has been discharged in hemodynamically stable condition with continued follow-up with various therapy and neurology as an outpatient. Physical Exam Narrative: General: No acute distress, AO x3, mild expressive aphasia HEENT: PERRLA, pupils bilaterally equal and reactive Chest: Normal vesicular breath sounds, no added sounds, equal good air entry bilaterally CVS: S1-S2 regular, no murmurs, no tachycardia, no gallops, no rubs Abdomen: Soft, nontender, no organomegaly, bowel sounds present Neuro: No focal deficits, no facial deformity, AO x3, power 5/5 in all limbs Discharge Data Studies Completed and Pending Completed Studies During Hospitalization Category Date Time Status CT head wo con* [id number] Stat Cat Scan 06/04/24 18:27 Completed MR head wo con* [id number] Stat MRI 06/05/24 10:30 [place] [id number] Stat MRI 06/05/24 10:30 Completed Pending at discharge Category Date Time Status JACY Profile Rheumatology AM LABS Lab 06/05/24 07:09 Received Complete Blood Count w/Auto AM LABS Lab 06/06/24 04:00 Ordered Comprehensive Metabolic Panel AM LABS Lab 06/06/24 04:00 Ordered Folate Level AM LABS Lab 06/06/24 04:00 Ordered MAG [Magnesium] AM LABS Lab 06/06/24 04:00 Ordered MAG [Magnesium] AM LABS Lab 06/07/24 04:00 Ordered MAG [Magnesium] AM LABS Lab 06/08/24 04:00 Ordered Protein C Antigen Routine Lab 06/04/24 20:33 Received Protein S Antigen, Total Routine Lab 06/04/24 20:33 Received Radiology Impressions Head CT 06/04/24 18:27 IMPRESSION: Hypoattenuating focus within the left parieto-occipital lobe, concerning for acute infarct. Brain MRI is recommended for further evaluation. COMMENT: THIS REPORT CONTAINS FINDINGS THAT MAY BE CRITICAL TO PATIENT CARE. The exam findings were verbally communicated by me to Shakir Carrera via telephone conference at 7:14 PM CDT on 06/04/2024. The findings were acknowledged and understood. Head MRI 06/05/24 10:30 IMPRESSION: 1. Suspected subacute venous infarct within the LEFT temporal lobe with moderate diffuse edema and a small amount of scattered T1 hyperintense subacute blood products. No large intraparenchymal hematoma. 2. Mild localized mass effect in the LEFT temporal lobe with effacement of the LEFT temporal horn. No hydrocephalus. Slight effacement of the LEFT ambient cistern. 3. Thrombosed LEFT sigmoid and transverse sinuses. Vein of Vera also appears thrombosed. 4. Mild patchy supratentorial white matter changes compatible with history of demyelinating disease appears relatively stable since 2021. Message LEFT for Dr. Martines with canceling machine operator at 06/05/2024 11:38 AM. Laboratory Results WBC 9.20 10^3/uL (3.29-11.43) 06/05/24 07:09 RBC 4.91 10^6/uL (3.85-5.65) 06/05/24 07:09 Hgb 14.90 g/dL (11.27-16.99) 06/05/24 07:09 Hct 43.9 % (37-53) 06/05/24 07:09 MCV 89.4 fl (82-101) 06/05/24 07:09 MCH 30.3 pg (27-33) 06/05/24 07:09 MCHC 33.9 g/dL (30-55) 06/05/24 07:09 RDW 13.3 % (12.1-15.1) 06/05/24 07:09 Plt Count 218 10^3/cmm (157-399) 06/05/24 07:09 MPV 10.6 fL (7.4-10.4) H 06/05/24 07:09 Neut % (Auto) 67.1 % 06/05/24 07:09 Lymph % (Auto) 21.6 % 06/05/24 07:09 Wayne % (Auto) 5.5 % 06/05/24 07:09 Eos % (Auto) 5.1 % 06/05/24 07:09 Baso % (Auto) 0.4 % 06/05/24 07:09 Neut # (Auto) 6.16 10^3/uL (1.8-7.7) 06/05/24 07:09 Lymph # (Auto) 2.0 10^3/uL (0.8-4.8) 06/05/24 07:09 Wayne # (Auto) 0.5 10^3/uL (0.2-0.9) 06/05/24 07:09 Eos # (Auto) 0.5 10^3/uL (0.0-0.8) 06/05/24 07:09 Baso # (Auto) 0.0 10^3/uL (0.0-0.1) 06/05/24 07:09 Nucleated RBC % (auto) 0 % 06/05/24 07:09 Nucleated RBCs # 0.0 /100WBC 06/05/24 07:09 ESR 7 mm/hr (0-10) 06/04/24 20:33 D-Dimer 0.82 ug/mLFEU (0-0.59) H 06/04/24 20:33 Sodium 139 mmol/L (136-145) 06/05/24 07:09 Potassium 3.9 mmol/L (3.5-5.1) 06/05/24 07:09 Chloride 106 mmol/L (98-107) 06/05/24 07:09 Carbon Dioxide 22 mmol/L (22-29) 06/05/24 07:09 Anion Gap 14.9 (5-19) 06/05/24 07:09 BUN 17 mg/dL (6-20) 06/05/24 07:09 Creatinine 0.8 mg/dL (0.7-1.2) 06/05/24 07:09 GFR Calculation 106.0 mL/min (90-130) 06/05/24 07:09 Glucose 106 mg/dL (65-115) 06/05/24 07:09 Estimat Average Glucose 100 06/04/24 20:33 Hemoglobin A1c 5.1 % (4.0-6.0) 06/04/24 20:33 Calculated Osmolality 290 mOsm/kg (285-295) 06/05/24 07:09 Calcium 9.1 mg/dL (8.5-10.5) 06/05/24 07:09 Phosphorus 3.9 mg/dL (2.5-4.5) 06/05/24 07:09 Magnesium 1.9 mg/dL (1.7-2.3) 06/05/24 07:09 Iron 54 ug/dL (59-158) L 06/04/24 20:33 TIBC 305 mcg/dl 06/04/24 20:33 % Saturation 17.7 % (20-50) L 06/04/24 20:33 Unsat Iron Binding 251 ug/dL (112-347) 06/04/24 20:33 Triglycerides 163 mg/dL (0-150) H 06/04/24 20:33 Cholesterol 206 mg/dL (0-200) H 06/04/24 20:33 LDL Cholesterol, Calc 136 mg/dL (50-129) H 06/04/24 20:33 Total VLDL Cholesterol 33 mg/dL (0-30) H 06/04/24 20:33 HDL Cholesterol 37 mg/dL (60-100) L 06/04/24 20:33 Cholesterol/HDL Ratio 5.57 mg/dL (1.0-5.00) H 06/04/24 20:33 Vitamin B12 608 pg/mL (232-1245) 06/04/24 20:33 TSH 1.77 uIU/mL (0.27-4.20) 06/04/24 20:33 Vitals Last Vital Signs Temp 97.8 F 06/05/24 11:34 Pulse 58 L 06/05/24 11:34 Resp 14 06/05/24 11:34 BP 123/78 06/05/24 11:34 Pulse Ox 98 06/05/24 11:34 O2 Del Method Room Air 06/05/24 11:34 Discharge Plan Discharge Patient Disposition: Home Condition: Stable Prescriptions: Continued Ocrevus 30 mg/mL solution 300 mg IV ONCE Qty: 10 10RF Rx Instructions: iv once then again in 2 months, then every 6 months Eliquis 5 mg tablet 5 mg PO BID atorvastatin 80 mg tablet 80 mg PO BEDTIME topiramate [Topamax] 100 mg tablet 100 mg PO DAILY Qty: 30 3RF levetiracetam [Keppra XR] 750 mg tablet extended release 24 hr 1,500 mg PO DAILY Qty: 180 3RF acetaminophen 500 mg Tablet 500 mg PO Q6H PRN (Reason: Pain) ibuprofen 200 mg Tablet 200 mg PO Q6H PRN (Reason: Pain) ondansetron HCl 4 mg tablet 4 mg PO DAILY PRN (Reason: Nausea And Vomiting) Discharge Orders: Discharge Order (Routine); Ordered 06/05/24 Ordered By: Valentin Nelson Other Ambulatory Orders: Speech Language Pathology Eval and Treat Outpatient (Order) Timeframe: 1 Week Facility: [facility] - Location: OT & [facility] Ordered By: Valentin Nelson Referrals: Shirley Amanda MD [Physician] - 1 week Fatou Siddiqui PA [Primary Care Provider] - 7-10 days Discharge Diet: As Directed Discharge Activity: Resume usual activity and Increase activity as tolerated Patient Instructions: Opioid Safety, Pain Management Discharge Attestations Time Spent in Discharge Care*: greater than 30 min Specific Discharge Activities: educating patient, educating and/or supporting family/caregiver, discussing with pcp/other providers, discussing with welfare case worker/social workers/dc planners, documenting/other paperwork and evaluating patient/reviewing data Status at Discharge: Cognitive status at discharge: cognitively intact, Behavioral status at discharge: cooperative, Functional status at discharge: independent ambulation, Overall status at discharge: patient is progressing back to baseline Quality Metrics Clinical Quality Measures [ No reported AMI, CVA or VTE this stay] Coding Level of Care Code 23370 Total time (in minutes) for Discharge: 60 Diagnoses Acute CVA (cerebrovascular accident) I63.9
[2024-06-05 16:00] VITALS: BP 136/88; PULSE 79; RESP 14; TEMP 36.4; O2SAT 97
--- NOTE | 2024-06-05 17:37 | PC.NURSE ---
Dr. Amanda contacted by this nurse. States that she spoke with the pt on the phone. She would like to us to go ahead and discharge pt tonight. Dr. Nelson contacted and advised. He states to go ahead with discharge.
--- NOTE | 2024-06-05 17:44 | PC.NURSE ---
Discharge instructions provided to pt and his . No questions or concerns at this time. To private vehicle via wheelchair with all belongings.
[2024-06-05 17:45] VITALS: BP 136/88; PULSE 79; RESP 14; TEMP 36.4; O2SAT 97
[2024-06-06 13:23] LABS: CENTROMERE B ANTIBODY <1.0 NEG AI (<1.0 NEG); JO-1 ANTIBODY <1.0 NEG AI (<1.0 NEG); RNP ANTIBODY <1.0 NEG AI (<1.0 NEG); SCL-70 ANTIBODY <1.0 NEG AI (<1.0 NEG); SJOGREN'S ANTIBODY (SS-A) <1.0 NEG AI (<1.0 NEG); SM ANTIBODY <1.0 NEG AI (<1.0 NEG); SS-B <1.0 NEG AI (<1.0 NEG)
[2024-06-07 14:34] LABS: ANA SCREEN, IFA NEGATIVE (NEGATIVE); COMPLEMENT, TOTAL (CH50) 49 U/mL (31-60)
[2024-06-07 15:08] LABS: COMPLEMENT COMPONENT C3C 167 mg/dL (82-185); COMPLEMENT COMPONENT C4C 28 mg/dL (15-53)
[2024-06-08 11:50] LABS: Protein S Antigen, Total 152 % normal (70-140)
[2024-06-11 11:25] LABS: THYROID PEROXIDASE ANTIBODIES <1 IU/mL (<9)
[2024-06-12 15:24] LABS: Protein C Antigen 115 % normal (70-140)
[2024-06-12 23:59] LABS: DNA AB (DS) CRITHIDIA,IFA NEGATIVE (NEGATIVE)
== END 2024-06-05 17:46 | disposition home or self-care (01) ==
LOC: ER 20:01 → MEDSURG 20:16
PROVIDERS: Admitting Provider Internal Medicine; Emergency Provider Emergency Medicine; PCP Physician Assistant; Visit Provider Student in an Organized Health Care Education/Training Program
DX: I63.9 Cerebral infarction, unspecified (principal); Z79.01 Long term (current) use of anticoagulants; G35 Multiple sclerosis
CPT/HCPCS: 36415; 70450; 70544; 70551; 80048; 80061; 82607; 83036; 83540; 83550; 83735; 84100; 84443; 85025; 85302; 85305; 85378; 85651; 86160; 86162; 86235; 86255; 86376; 92523; 92610; 94660; 97110; 97116; 97161; 97165; 99285; G0378

== ENCOUNTER 2024-07-02 14:58 | Outpatient (CLI) | payer OTHER, MEDICARE, SELFPAY ==
--- NOTE | 2024-07-02 15:15 | MR_ITS ---
WS: [id number] MRI LUMBAR SPINE NONCONTRAST TECHNIQUE: Sagittal T1, T2 and STIR imaging. Axial T1 and T2 imaging. CLINICAL INFORMATION: back pain COMPARISON: MRI 09/13/2022 FINDINGS: Mild lumbar curve. No acute compression. Disc bulging worse at L4-L5 and L5-S1. No high-grade central canal stenosis. L1-L2: Normal. L2-L3: Mild facet arthropathy. Spinal canal and foramen are patent. L3-L4: Mild facet arthropathy. Small LEFT foraminal protrusion with mild LEFT foraminal narrowing. Sl ight impingement exiting LEFT L3 nerve root. Moderate facet arthropathy. L4-L5: LEFT paracentral disc protrusion with mild central canal stenosis. Impingement of traversing L EFT greater than RIGHT L5 nerve roots. Moderate facet arthropathy. Foramen are patent. L5-S1: Prominent RIGHT paracentral protrusion impinges the RIGHT S1 nerve root in the subarticular re cess. Mild facet arthropathy. Foramen are patent. Visualized pelvic bony structures: Normal. Paravertebral soft tissues: Normal. MR/MR lumbar spine wo con* [id number] IMPRESSION: 1. LEFT paracentral protrusion L4-5 impinges the traversing LEFT greater than RIGHT L5 nerve roots with mild central canal stenosis. This is progressed shellie red to previous. 2. Prominent RIGHT paracentral protrusion L5-S1 impinges the traversing RIGHT S1 nerve root in the subarticular recess. This is similar to previous but appea rs slightly progressed. 3. Small LEFT foraminal protrusion L3-4 slightly contacts the exiting LEFT L3 nerve root. This appears similar to previous. 4. Moderate facet arthropathy L3-L4 L4-L5.
== END 2024-07-02 14:59 | disposition home or self-care (01) ==
PROVIDERS: PCP Physician Assistant; Visit Provider Orthopaedic Surgery
DX: M47.816 Spondylosis without myelopathy or radiculopathy, lumbar region (principal); G35 Multiple sclerosis; M54.9 Dorsalgia, unspecified; M48.061 Spinal stenosis, lumbar region without neurogenic claudication
CPT/HCPCS: 72148

== ENCOUNTER 2024-07-03 08:38 | Outpatient (CLI) | payer OTHER, MEDICARE, SELFPAY ==
--- NOTE | 2024-07-03 08:45 | MR_ITS ---
WS: [id number] MRI HEAD WITH CONTRAST TECHNIQUE: Sagittal T1, T2 axial, T2 axial FLAIR, axial susceptibility weighted imaging, axial diffus ion weighted images, and coronal T2 images were obtained. Pre and post-T1 axial and post T1 coronal i mages. ADC and FSPGR images. CLINICAL INFORMATION: G35 - Multiple sclerosis COMPARISON: MRI and MRV 06/05/2024 FINDINGS: Prior history of thrombosed LEFT sigmoid and transverse sinuses as well as the vein of Vera. Mild pa tchy supratentorial white matter changes compatible with history of demyelinating disease appears sta ble compared to the prior examination. Previously described hemorrhagic venous infarct in the LEFT te mporal lobe has evolved. Small amount of residual hemosiderin in the LEFT temporal lobe. No new blood products. Previously described areas of edema in the LEFT temporal lobe have improved and essentially resolved. Small amount of residual edema or gliosis along the LEFT temporal horn. No significant mass effect o r midline shift. No hydrocephalus. Normal posterior fossa. Normal vascular flow voids at the skull base. No extra-axial fluid collection s. Mild mucosal thickening in the paranasal sinuses. Mastoid air cells are well aerated. Loss of the normal flow-void with increased T2 signal abnormality in the LEFT sigmoid and transverse sinuses compatible with residual stenosis and thrombus with slow flow. Post gadolinium images demonst rate a more normal enhancement pattern likely due to partial recanalization of the peripheral wall en hancement. Small amount of laminar necrosis overlying the LEFT lateral temporal lobe. MR/MR head wo/w con [id number] IMPRESSION: 1. Previously described LEFT temporal venous infarct has evolved with near com plete resolution of the areas of edema. No significant mass effect today. 2. Resolution of the previously described blood products with a small amount o f residual hemosiderin in the LEFT temporal lobe. 3. No significant mass effect or midline shift today. 4. No new areas of ischemia. 5. Stable patchy supratentorial white matter changes suspicious for demyelinat ing disease. 6. Residual slow flow with at least partial thrombosis in the LEFT sigmoid and transverse sinus. Likely some partial recanalization with a more normal enhanc ement pattern on the post gadolinium imaging After injection of gadolinium patient experienced nausea and vomiting with stab le vital signs. Patient was removed from the scanner. After several minutes whe n patient was feeling better the post gadolinium imaging was obtained. Reaction occurred despite premedication. Recommend imaging be performed without gadolin ium in the future
[2024-07-03] MEDS: gadobenate dimeglumine 20 mL vial IV (09:24)
== END 2024-07-03 08:39 | disposition home or self-care (01) ==
LOC: RAD 08:39
PROVIDERS: PCP Physician Assistant; Visit Provider Specialist
DX: G35 Multiple sclerosis (principal); G08 Intracranial and intraspinal phlebitis and thrombophlebitis; R56.9 Unspecified convulsions; G43.711 Chronic migraine without aura, intractable, with status migrainosus; M54.81 Occipital neuralgia; R03.0 Elevated blood-pressure reading, without diagnosis of hypertension
CPT/HCPCS: 70553; 99215; A9577

== ENCOUNTER 2024-07-17 12:59 | Oncology outpatient (recurring) (ONCR) | payer OTHER, MEDICARE, SELFPAY ==
[2024-07-17 14:59] LABS: Basophils % 0.4 %; Eosinophils # 0.6 10^3/uL (0.0-0.8); Eosinophils % 8.2 %; Hematocrit 45.2 % (37-53); Lymphocytes # 1.6 10^3/uL (0.8-4.8); Mean Corpuscular Hemoglobin 30.7 pg (27-33); Mean Corpuscular Volume 87.9 fl (82-101); Monocytes # 0.5 10^3/uL (0.2-0.9); Monocytes % 6.7 %; Neutrophils # 4.47 10^3/uL (1.8-7.7); Neutrophils % 62.3 %; Nucleated Red Blood Cells % 0 %; Platelet Count 203 10^3/cmm (157-399); Red Blood Count 5.14 10^6/uL (3.85-5.65); White Blood Count 7.18 10^3/uL (3.29-11.43)
[2024-07-19 16:39] LABS: Lupus DRVVT Confirm NEGATIVE (NEGATIVE); PTT-LA-Screen 31 sec (< OR = 40)
[2024-07-20 03:35] LABS: CARDIOLIPIN AB (IGA) <2.0 APL-U/mL; CARDIOLIPIN AB (IGG) <2.0 GPL-U/mL; CARDIOLIPIN AB (IGM) 4.4 MPL-U/mL
[2024-07-20 05:20] LABS: Antithrombin III Activity 106 % normal (80-135)
--- NOTE | 2024-07-26 10:30 | CT_ITS ---
WS: [id number] CT CHEST, ABDOMEN AND PELVIS WITH CONTRAST HISTORY: family history of pancreatic cancer; abdominal discomfort TECHNIQUE: Contiguous 5 mm axial imaging performed through the chest, abdomen and pelvis with IV cont rast, oral contrast has been provided. Coronal and sagittal reformats chest. Coronal and sagittal ref ormats through the abdomen and pelvis. All CT scans at [facility] use at least one of these d ose optimization techniques: automated exposure control; mA and/or kV adjustment per patient size (in cludes targeted exams where dose is matched to clinical indication); or iterative reconstruction. CONTRAST: Omnipaque 350; 100 mL IV. DLP: 1547.32 mGy.cm COMPARISON: None available. Chest CT: Poor inspiratory effort resulting in crowding of the lung markings. No pneumonia or pulmona ry nodule. Normal size aorta and pulmonary artery. Normal size heart. No pericardial or pleural effus ions. No mediastinal or hilar adenopathy. Neck and chest wall are negative. Small hiatal hernia. Abdomen CT: Hepatic steatosis. Normal portal vein. No mass. Normal common bile duct. Normal gallbladd er. Spleen is normal. Pancreas is normal size. There is very minimal fullness at the region of the pa ncreatic head extending lateral towards the duodenum. This is similar attenuation as the remaining pa ncreas. The area of concern measures 2.4 x 2.0 cm. There is no bile duct dilatation. I favor this is probably normal pancreatic soft tissue with this patient. No adjacent adenopathy. Normal aorta. No me senteric thrombosis. Both kidneys contain nonobstructing calcifications. No renal mass. Normal appearance of the stomach and small bowel. There is no obstruction. Normal colon and appendix. No significant diverticular disease. Pelvic CT: Urinary bladder is well distended. No enhancing nodules. Prostate gland is negative. No as cites or adenopathy. No bone destruction. CT/CT chest abdpel w/*[id number] IMPRESSION: 1. No pulmonary mass or nodule. 2. No chest, abdomen or pelvic adenopathy. 3. There is very minimal fullness in the region of the pancreatic head. This f ullness is similar attenuation as the remaining pancreas. I favor this is proba cielo benign pancreatic soft tissue. Due to the slight change in attenuation and the family history of pancreatic carcinoma consider follow-up by MRI. Recommend MR pancreas with and without contrast. 4. Hepatic steatosis. 5. Normal aorta with no mesenteric thrombosis. 6. Nonobstructing bilateral small renal calculi.
[2024-07-26] MEDS: iohexol 350 mg/mL 500 mL Btl (per mL) IV (11:34)
[2024-07-26] MEDS: iohexol 350 mg/mL 500 mL Btl (per mL) PO (11:34)
[2024-07-27 04:54] LABS: Beta 2 Glycoprotein IGA <2.0 U/mL (<20.0); Beta 2 Glycoprotein IGG <2.0 U/mL (<20.0)
[2024-07-29 18:45] LABS: Factor 5 Leiden Mutation POSITIVE
[2024-07-30 22:25] LABS: PROTHROMBIN (FACTOR II) 20210G NEGATIVE
== END 2024-08-12 23:59 | disposition home or self-care (01) ==
LOC: RAD 07-26 09:48 → ONCMED 07-26 09:49
PROVIDERS: PCP Physician Assistant; Visit Provider Internal Medicine Medical Oncology
DX: Z53.9 Procedure and treatment not carried out, unspecified reason (principal); I63.9 Cerebral infarction, unspecified; Z80.0 Family history of malignant neoplasm of digestive organs; R10.9 Unspecified abdominal pain; R05.9 Cough, unspecified; R93.7 Abnormal findings on diagnostic imaging of other parts of musculoskeletal system; N20.0 Calculus of kidney; K76.0 Fatty (change of) liver, not elsewhere classified; K86.89 Other specified diseases of pancreas
CPT/HCPCS: 36415; 71260; 74177; 81241; 85025; 85210; 85300; 85378; 85613; 85730; 86146; 86147

== ENCOUNTER 2024-10-30 15:22 | Outpatient (CLI) | payer OTHER, MEDICARE, SELFPAY ==
--- NOTE | 2024-10-30 16:30 | CT_ITS ---
WS: [id number] CT ABDOMEN AND PELVIS WITH CONTRAST HISTORY: abnormal findings in pancreas on CT TECHNIQUE: Imaging performed of the abdomen and pelvis with IV contrast. Single phase imaging of the abdomen. Coronal and sagittal reformats are submitted. All CT scans at [facility] use at [address] one of these dose optimization techniques: automated exposure control; mA and/or kV adjustment per patient size (includes targeted exams where dose is matched to clinical indication); or iterative re construction. IV CONTRAST: Omnipaque 350; 100 mL IV. Oral contrast: Yes. DLP: 1078.34 mGy.cm COMPARISON: 07/26/2024 Lower thorax: Lung bases are clear. Heart is normal size. No hiatal hernia. Liver/biliary system: Normal size with no intrahepatic dilatation. Gallbladder: Normal. No gallstones or wall thickening. No pericholecystic fluid. Pancreas: No change in configuration of the pancreatic head. Slightly lobulated appearance of the altman creatic head has not changed in size. There is no pancreatic duct dilatation. Normal diffuse homogene ous pancreatic enhancement. Spleen: Normal size spleen. No mass or infarct. Adrenal glands: Normal. Right kidney: Normal kidney with nonobstructing calcifications. Left kidney: Normal size kidney with nonobstructing calcifications. There are a few scattered too sma ll to characterize hypodensities in the renal cortex. Aorta: Normal. Lymphadenopathy: None. Free fluid: None. GI tract: Stomach is distended with food products. No small bowel obstruction. Normal appearance of t he colon. No appendicitis. Abdominal wall: Unremarkable abdominal wall. No hernia. Pelvis: No free fluid or adenopathy within the pelvis. Normally distended urinary bladder. No free fl uid. Bones: Unremarkable. CT/CT abdomen pelvis w con* [id number] IMPRESSION: 1. No interval change in appearance of the pancreatic head. Cannot confirm altman creatic mass. 2. No pancreatic duct dilatation. 3. No ascites or adenopathy. 4. No GI tract obstruction.
[2024-10-30] MEDS: iohexol 350 mg/mL 500 mL Btl (per mL) PO (16:39)
[2024-10-30] MEDS: iohexol 350 mg/mL 500 mL Btl (per mL) IV (16:51)
== END 2024-10-30 15:23 | disposition home or self-care (01) ==
PROVIDERS: PCP Physician Assistant; Visit Provider Internal Medicine Medical Oncology
DX: R93.5 Abnormal findings on diagnostic imaging of other abdominal regions, including retroperitoneum (principal); N20.0 Calculus of kidney
CPT/HCPCS: 74177

== ENCOUNTER 2024-11-12 13:30 | Oncology outpatient (recurring) (ONCR) | payer OTHER, MEDICARE, SELFPAY ==
[2024-10-31 14:24] LABS: Basophils # 0.1 10^3/uL (0.0-0.1); Basophils % 0.6 %; Eosinophils # 0.6 10^3/uL (0.0-0.8); Eosinophils % 7.3 %; Hematocrit 47.6 % (37-53); Lymphocytes # 1.9 10^3/uL (0.8-4.8); Lymphocytes % 24.4 %; Mean Corpuscular HGB Conc 33.8 g/dL (30-55); Mean Corpuscular Hemoglobin 29.9 pg (27-33); Mean Corpuscular Volume 88.3 fl (82-101); Mean Platelet Volume 9.7 fL (7.4-10.4); Monocytes # 0.4 10^3/uL (0.2-0.9); Monocytes % 5.4 %; Neutrophils # 4.84 10^3/uL (1.8-7.7); Nucleated Red Blood Cells % 0 %; Platelet Count 223 10^3/cmm (157-399); Red Blood Count 5.39 10^6/uL (3.85-5.65); Red Cell Distribution Width 13.2 % (12.1-15.1)
[2024-10-31 14:58] LABS: Alanine Aminotransferase 40 U/L (0-41); Albumin Level 4.3 g/dL (3.5-5.2); Alkaline Phosphatase 82 U/L (40-130); Aspartate Amino Transferase 25 U/L (0-40); Blood Urea Nitrogen 17 mg/dL (6-20); Calcium 9.8 mg/dL (8.5-10.5); Cancer Antigen 19 9 4.94 U/mL (0-35); Carbon Dioxide 26 mmol/L (22-29); Chloride 103 mmol/L (98-107); Creatinine Clr Calc Pharmacy 145.3249; Globulin 3.3 g/dL (1.3-4.6); Glomerular Filtration Rate 92.5 mL/min (90-130); Glucose 98 mg/dL (65-115); Lipase 25 U/L (13-60); Osmolality Calculated 288 mOsm/kg (285-295); Sodium 138 mmol/L (136-145); Total Bilirubin 0.3 mg/dL (0.15-1.2); Total Protein 7.6 g/dL (6.6-8.7)
[2024-10-31 15:26] LABS: Anion Gap 13.2 (5-19); Lactate Dehydrogenase 224 U/L (135-225); Potassium 4.2 mmol/L (3.5-5.1)
[2024-11-01 10:14] LABS: Amylase 31 U/L (21-101)
--- NOTE | 2024-11-12 13:30 | CTR_ITS ---
PROCEDURE INFORMATION: Exam: CTA Chest Without And With Contrast CTA Abdomen and Pelvis With Contrast Exam date and time: 11/12/2024 1:26 PM Age: 44 years old Clinical indication: Abdominal pain; Generalized; Patient HX: --persistant pain and HX of dvt's on anticoagulation. HX of pancreas problems; Additional info: Persistent pain and HX of dvts on anticoagulation TECHNIQUE: Imaging protocol: Computed tomographic angiography of the chest without and with contrast. Exam focused on the arteries. Computed tomographic angiography of the abdomen and pelvis with contrast. Exam focused on the arteries. 3D rendering (Not supervised by radiologist): MIP and/or 3D reconstructed images were created by the technologist. Radiation optimization: All CT scans at this facility use at least one of these dose optimization techniques: automated exposure control; mA and/or kV adjustment per patient size (includes targeted exams where dose is matched to clinical indication); or iterative reconstruction. Contrast material: OMNI 350; Contrast volume: 100 ml; Contrast route: INTRAVENOUS (IV); COMPARISON: CT abdomen pelvis w con* [id number] 10/30/2024 and 07/26/2024 RADIATION DOSE METRICS: Total DLP (mGy-cm): 1580.48 FINDINGS: VASCULATURE: Pulmonary arteries: Normal. No pulmonary emboli. Aorta: No aortic aneurysm. No aortic dissection. Celiac trunk and mesenteric arteries: No occlusion or significant stenosis. Renal arteries: No occlusion or significant stenosis. Right iliac arteries: No occlusion or significant stenosis. Peripheral linear filling defect in the right internal iliac artery (series 7, image [id number]). Left iliac arteries: No occlusion or significant stenosis. CHEST: Lungs: Minimal patchy ground-glass opacities in dependent areas of the lower lobes are likely atelectatic. Pleural spaces: Unremarkable. No pneumothorax. No pleural effusion. Heart: Unremarkable. No cardiomegaly. No pericardial effusion. Diaphragm: There is a small hiatal hernia. ABDOMEN AND PELVIS: Liver: There is fatty liver with no mass. Gallbladder and biliary ducts: Unremarkable. No calcified stones. No ductal dilation. Pancreas: Unremarkable. No mass. No ductal dilation. Spleen: Unremarkable. No splenomegaly. Adrenal glands: Unremarkable. No mass. Kidneys and ureters: The kidneys are normal in size with no hydronephrosis or mass with bilateral nonobstructive stones measuring up to 6 x 3 mm. 5 x 2 mm stone noted in the left distal ureter on series 7, image 275 about 2.8 cm proximally to the ureterovesical junction. The stone of the same size was present on 10/30/2024 1.5 cm above the ureterovesical junction (series 4, image 81), and on 07/26/2024 immediately above the ureterovesical junction (series 5, image 83). Stomach and bowel: Unremarkable. No obstruction. No mucosal thickening. Appendix: Normal appendix is visualized. Intraperitoneal space: Unremarkable. No free air. No significant fluid collection. Urinary bladder: Unremarkable. No mass. Reproductive: Unremarkable as visualized. Lymph nodes: Unremarkable. No enlarged lymph nodes. Bones/joints: Unremarkable. No acute fracture. Soft tissues: Unremarkable. CT/CT [facility] [id number] IMPRESSION: No pulmonary embolism. No aortic aneurysm or dissection. Minimal peripheral linear filling defect in the right internal iliac artery causing no significant stenosis may represents a small nonocclusive thrombus or age indeterminate dissection. Persistent bilateral nephrolithiasis. Nonobstructive left ureteral stone is a persistent finding in various locations of the left distal ureter in comparison with prior exams of 10/30/2024 and 07/26/2024.
[2024-11-12] MEDS: iohexol 350 mg/mL 500 mL Btl (per mL) IV (13:43)
== END 2024-11-12 23:59 | disposition home or self-care (01) ==
LOC: RAD 11-13 00:01 → ONCMED 11-14 09:34
PROVIDERS: Nurse Practitioner; PCP Physician Assistant; Visit Provider Internal Medicine Medical Oncology
DX: Z53.9 Procedure and treatment not carried out, unspecified reason; G08 Intracranial and intraspinal phlebitis and thrombophlebitis; I63.9 Cerebral infarction, unspecified; G35 Multiple sclerosis; N20.0 Calculus of kidney; N20.1 Calculus of ureter
CPT/HCPCS: 36415; 71275; 74174; 80053; 82150; 83615; 83690; 85025; 86301

== ENCOUNTER 2025-03-12 07:15 | Oncology outpatient (recurring) (ONCR) | payer BC, MEDICARE, SELFPAY ==
[2025-03-06 10:46] LABS: Basophils % 0.5 %; Eosinophils # 0.4 10^3/uL (0.0-0.8); Eosinophils % 5.6 %; Hematocrit 47.4 % (37-53); Lymphocytes # 1.9 10^3/uL (0.8-4.8); Lymphocytes % 28.5 %; Mean Corpuscular HGB Conc 33.5 g/dL (30-55); Mean Corpuscular Hemoglobin 29.6 pg (27-33); Mean Corpuscular Volume 88.3 fl (82-101); Mean Platelet Volume 9.6 fL (7.4-10.4); Monocytes # 0.4 10^3/uL (0.2-0.9); Monocytes % 6.1 %; Nucleated Red Blood Cells % 0 %; Platelet Count 195 10^3/cmm (157-399); Red Blood Count 5.37 10^6/uL (3.85-5.65); Red Cell Distribution Width 13.2 % (12.1-15.1)
[2025-03-06 11:15] LABS: Alanine Aminotransferase 29 U/L (0-41); Albumin Level 4.3 g/dL (3.5-5.2); Alkaline Phosphatase 84 U/L (40-130); Aspartate Amino Transferase 21 U/L (0-40); Blood Urea Nitrogen 23 mg/dL (6-20); Calcium 9.3 mg/dL (8.5-10.5); Carbon Dioxide 26 mmol/L (22-29); Chloride 104 mmol/L (98-107); Creatinine Clr Calc Pharmacy 129.4578; Glomerular Filtration Rate 81.6 mL/min (90-130); Glucose 92 mg/dL (65-115); Lactate Dehydrogenase 156 U/L (135-225); Osmolality Calculated 291 mOsm/kg (285-295); Sodium 139 mmol/L (136-145); Total Bilirubin 0.5 mg/dL (0.15-1.2); Total Protein 7.3 g/dL (6.6-8.7)
--- NOTE | 2025-03-12 07:15 | MRR_ITS ---
PROCEDURE INFORMATION: Exam: MR Head Without Contrast Exam date and time: 03/12/2025 7:08 AM Age: 45 years old Clinical indication: Altered mental status/memory loss; Stroke, seizure, brain bleed 6 months ago. Memory loss. 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 COMPARISON: MR head wo/w con [id number] 07/03/2024 8:54 AM FINDINGS: Brain: There is no mass effect, midline shift, hemorrhage, extra-axial fluid collection or acute infarct. Patchy hemispheric white matter signal hyperintensities are noted, nonspecific, requiring clinical correlation. Cerebral ventricles: Normal. No ventriculomegaly. Bones: Unremarkable. Paranasal sinuses: Scattered polypoid disease is noted in the floor of the right maxillary antrum and right sphenoid sinus. Mastoid air cells: Normal as visualized. No mastoid effusion. Orbital cavities: Unremarkable. Soft tissues: Unremarkable. MR/MR head wo con* [id number] IMPRESSION: No acute intracranial process. Nonspecific white matter disease requiring clinical correlation.
--- NOTE | 2025-03-12 08:00 | US_ITS ---
WS: [id number] RIGHT UPPER QUADRANT ULTRASOUND HISTORY: K86.89 - Other specified diseases of pancreas COMPARISON: CT 10/30/2024, CT angiogram 11/12/2024 Liver: 14.4 cm in length. Increased echogenicity throughout the liver. The entire liver is not well visualized. Portal Vein: Poor demonstration of the portal vein due to technique. Gallbladder: Normally distended gallbladder with no stones or wall thickening. CBD: 0.6 cm Pancreas: Completely obscured by bowel gas and body habitus. Right kidney: 12.3 cm in length. Normal size and echogenicity. No hydronephrosis or mass. Aorta and IVC: Limited. No ascites. US/US pancreas [id number] IMPRESSION: 1. Technically very difficult evaluation of the abdominal structures due to pa tient's body habitus. 2. Pancreas is not visualized. 3. Negative gallbladder.
== END 2025-03-12 23:59 | disposition home or self-care (01) ==
LOC: RAD 03-13 00:01 → ONCMED 03-13 09:14
PROVIDERS: Nurse Practitioner; PCP Physician Assistant; Visit Provider Specialist
DX: Z53.9 Procedure and treatment not carried out, unspecified reason; K86.89 Other specified diseases of pancreas; I69.398 Other sequelae of cerebral infarction; R56.9 Unspecified convulsions; R90.82 White matter disease, unspecified
CPT/HCPCS: 36415; 70551; 76705; 80053; 83615; 85025

== ENCOUNTER 2025-04-10 14:06 | Oncology outpatient (recurring) (ONCR) | payer BC, MEDICARE, SELFPAY ==
--- NOTE | 2025-04-10 14:00 | CTR_ITS ---
PROCEDURE INFORMATION: Exam: CT Abdomen Without Contrast Exam date and time: 04/10/2025 2:39 PM Age: 45 years old Clinical indication: Condition or disease; Pancreatic condition; Other: Other specified diseases of pancreas; Additional info: K86.89 - other specified diseases of pancreas TECHNIQUE: Imaging protocol: Computed tomography of the abdomen without contrast. Radiation optimization: All CT scans at this facility use at least one of these dose optimization techniques: automated exposure control; mA and/or kV adjustment per patient size (includes targeted exams where dose is matched to clinical indication); or iterative reconstruction. COMPARISON: 1. CT abdomen pelvis w con* [id number] 10/30/2024 4:[address] ang ches abdpel [id number] 11/12/2024 1:26 PM RADIATION DOSE METRICS: Total DLP (mGy-cm): 678.22 FINDINGS: Liver: Diffuse fatty infiltration of the liver. Gallbladder and biliary ducts: Normal. No calcified stones. No ductal dilation. Pancreas: Atrophic pancreatic tail. The head and body are unremarkable. Spleen: Normal. No splenomegaly. Adrenal glands: Normal. No mass. Kidneys: 7 mm and 2 mm right renal calculi. 1 mm and 7 mm left renal calculi. No hydronephrosis. Stomach and bowel: Contrast opacified stomach and visualized small bowel are unremarkable. The visualized colon is unremarkable. Intraperitoneal space: Unremarkable. No free air. No significant fluid collection. Vasculature: Unremarkable. No abdominal aortic aneurysm. Lymph nodes: Unremarkable. No enlarged lymph nodes. Bones/joints: Mild degenerative changes in the spine. No fracture. Soft tissues: Unremarkable. CT/CT abdomen con [id number] IMPRESSION: 1. No acute findings. 2. Nonobstructing renal calculi.
[2025-04-10] MEDS: iohexol 350 mg/mL 500 mL Btl (per mL) PO (14:55)
== END 2025-04-12 23:59 | disposition home or self-care (01) ==
LOC: ONCMED 14:06 → RAD 04-11
PROVIDERS: PCP Physician Assistant; Visit Provider Specialist
DX: Z53.9 Procedure and treatment not carried out, unspecified reason; K86.89 Other specified diseases of pancreas
CPT/HCPCS: 74150

== ENCOUNTER 2025-04-22 12:27 | Outpatient (CLI) | payer BC, MEDICARE, SELFPAY | END 2025-04-22 12:28 | disposition home or self-care (01) | LOC: SLEEP 12:28 | PROVIDERS: PCP Physician Assistant; Referring Provider Specialist; Visit Provider Internal Medicine Pulmonary Disease | DX: G47.33 Obstructive sleep apnea (adult) (pediatric) (principal); G47.36 Sleep related hypoventilation in conditions classified elsewhere | CPT/HCPCS: G0399 ==

== ENCOUNTER 2025-06-17 15:10 | Emergency (ER) | payer BC, MEDICARE, SELFPAY ==
[2025-06-17 15:18] VITALS: BP 183/122; PULSE 85; RESP 16; TEMP 36.7; O2SAT 99
--- NOTE | 2025-06-17 15:18 | ECG_ITS ---
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 Measurements Intervals [place] Rate: 88 P: 8 DC: 150 QRS: 3 QRSD: 89 T: 30 QT: 341 QTc: 414 Interpretive Statements SINUS RHYTHM No previous ECG available for comparison Electronically Signed On 06-17-2025 22:58:12 CDT by Jarred Velasquez M.D. [id number]
--- OUTSIDE RECORDS SUMMARY | 2025-06-17 15:19 | XMS_ITS | Clinical Summary ---
Author Organization [facility] Address [address] [place] [id number] Care Team Providers Care Manager Multicultural Name Role Phone Fatou Siddiqui Primary Care Provider Active Problems Problem Noted Date Diagnosed Date Cephalalgia 07/14/2011 Medical History Medical History Date Comments Upper limb amputation (HCC) Ampu tated Fingers - tip of right finger 2004 (Added by TW Conv) Family History Medical History Relation Name Comments Epilepsy Brother Seizure Disorde r - (Added by TW Conv) Cancer Father Cancer - pancre atic (Added by TW Conv) Coronary artery disease Father Lula nary Artery Disease - (Added by TW Conv) Hypertension Father Hypertension - (Added by TW Conv) Diabetes Other Diabetes Mellit us - (Added by TW Conv) Parkinsonism Paternal Grandfather Dallas on's Disease - (Added by TW Conv) Stroke Paternal Grandfather Stroke Syndrome - (Added by TW Conv) Relation Name Status Comments Brother Father Other Paternal Grandfather Social History Tobacco Use Types Packs/Day Years Used Date Smoking Tobacco: Never Sex and Gender Information Value Date Recorded Sex Assigned at Not on file 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 Gender Identity Not on file Sexual Orientation Not on file Obstetrics History Plan of Treatment Health Maintenance Due Date Last Done Comments Depression Screening 1982 Hepatitis C Screening 1982 Varicella Vaccines (1 of 2 - 13+ 2-dose series) 1995 DTaP/Tdap/Td Vaccine (6 - Tdap) 06/11/1996 06/10/1996, 09/22/1987, 08/05/1986, Additional history exists Regular Well Visit/Exam 18-64 02/25/2000 HPV Vaccines (1 - 3-dose SCDM series) 2009 Influenza Vaccine (#1) 2025 Hepatitis B Screening Completed 11/03/1999 , 07/07/1999, 05/18/1999 Pneumococcal vaccine <65 Aged Out No longer eligible based on patient's age to complete this topic Insurance [employer] CHOICE MEDICARE Care Teams Manager Multicultural Relationship Specialty Start Date End Date Fatou Siddiqui PA [address] [facility] [address] [place] [address] PCP - General Physician Wrecking Mechanic 11/14/24
--- OUTSIDE RECORDS SUMMARY | 2025-06-17 15:19 | XMS_ITS | Clinical Summary ---
Author Organization [facility] Address [address] [place] [phone] Phone Care Team Providers Care Electric Trucker Name Role Phone Unavailable Primary Care Provider Unavailabl e Allergies Active Allergy Reactions Criticality Noted Date Comments Iodinated Contrast Media Nausea and Vomiting Low Medications tamsulosin (FLOMAX) 0.4 mg capsule Take 0.4 mg by mouth daily. Active ondansetron (ZOFRAN) 4 mg Tablet Take 4 mg by mouth every 8 hours as needed for Nausea/Emes is. Active apixaban (Eliquis) 5 mg tablet Take 5 mg by mouth 2 times daily. Active levETIRAcetam (KEPPRA) 500 mg tablet Take 500 mg by mouth 2 times daily. Active atorvastatin (LIPITOR) 80 mg tablet Take 80 mg by mouth daily at bedtime. Active Active Problems Problem Noted Date Diagnosed Date Seizure disorder 05/29/2024 Right sided weakness 03/20/2017 Right facial numbness 03/20/2017 Multiple sclerosis exacerbation Overview (04/24/2017): Sx: MCDONALD, slurred speech, right sided weakness, blurred vision Dx: April 2017 Date of disability: Most recent JCV antibody testin04/21/17 JCV Negative Index 0.15 DMT: Drug, Start-End date, reason for discontinuing if known 1. Tecfidera SRF sent 2. 3. Hiccups Swelling of right upper extremity Encounters Date Type Department Care Team Description 06/10/2025 External Device Data [facility] ABSTRACTION Provider, Abstract 06/10/2025 External Device Data [facility] ABSTRACTION Provider, Abstract 06/10/2025 External Device Data [facility] ABSTRACTION Provider, Abstract 06/03/2025 External Device Data [facility] ABSTRACTION Provider, Abstract 05/28/2025 External Device Data [facility] ABSTRACTION Provider, Abstract 05/28/2025 External Device Data [facility] ABSTRACTION Provider, Abstract 04/30/2025 External Device Data [facility] ABSTRACTION Provider, Abstract 04/22/2025 External Device Data [facility] ABSTRACTION Provider, Abstract 04/22/2025 External Device Data [facility] ABSTRACTION Provider, Abstract 04/02/2025 External Device Data [facility] ABSTRACTION Provider, Abstract 04/01/2025 External Device Data [facility] ABSTRACTION Provider, Abstract 03/18/2025 External Device Data [facility] ABSTRACTION Provider, Abstract from Last 3 Months Family History Medical History Relation Name Comments Cancer Father Stroke Maternal Grandmother Healthy Mother Relation Name Status Comments Father Maternal Grandmother Mother Alive Social History Tobacco Use Types Packs/Day Years Used Date Smoking Tobacco: Never Smokeless Tobacco: Never Alcohol Use Standard Drinks/Week Comments Yes 7 (1 standard drink = 0.6 oz pur e alcohol) Sex and Gender Information Value Date Recorded Sex Assigned at Not on file 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 Gender Identity Not on file Sexual Orientation Not on file Last Filed Vital Signs Vital Sign Reading Time Taken Comments Blood Pressure 149/111 06/21/2024 7:15 PM CDT Pulse 88 06/21/2024 7:15 PM CDT Temperature 36.7 C (98 F) 06/21/2024 3:38 PM CDT Respiratory Rate 13 06/21/2024 7:15 PM CDT Oxygen Saturation 95% 06/21/2024 7:15 PM CDT Inhaled Oxygen Concentration - - Weight 120.2 kg (265 lb) 06/21/2024 3:38 PM CDT Height 182.9 cm (6') 06/21/2024 3:38 PM CDT Body Mass Index 35.94 06/21/2024 3:38 PM CDT Plan of Treatment Health Maintenance Due Date Last Done Comments DTAP/TDAP/TD VACCINES (6 - Tdap) 1993 09/22/1987, 08/05/1986, 09/18/1985, Additional history exists HPV VACCINES (1 - Male 3-dos e series) 1997 Pre-Diabetes and Diabetes Screening 03/21/2020 03/21/2017 INFLUENZA VACCINE (#1) 2025 HEPATITIS B VACCINES Completed 11/03/1999, 07/07/1999, 05/18/1999 Procedures Procedure Name Priority Date/Time Associated Diagnosis Comments HEMOGLOBIN A1C Routine 03/21/2017 6:05 AM CDT from Last 3 Months or Most Recently Relevant to Health Maintenance Results * HEMOGLOBIN A1C (03/21/2017 6:05 AM CDT) HEMOGLOBIN A1C 5.0 4.0 - 6.0 % 03/21/2017 7:05 PM CDT [facility] Comment:Note: Effective as o f 12/04/2015 a new methodology, Turbidimetric inhibition immunoassay (TINIA),has been implemented. EST. AVG GLUCOSE, A1C 97 mg/dL 03/21/2017 7:05 PM CDT [facility] Blood Collection / Unknown 03/21/2017 6:05 AM CDT 03/21/2017 5:15 PM CDT us Laurence Machuca MD CHEMISTRY ORDERABLES Final Resul t [facility] [employer] [facility] CLIA# [id number] [address] [place] [address] from Last 3 Months or Most Recently Relevant to Health Maintenance Insurance [employer] (INTERNAL) [facility] [employer] [facility] MEDICARE PART A AND B [id number] Address: [facility] [id number] [place] [address] Advance Directives For more information, please contact: [phone] * Full Code (Latest Code Status on File) Date Activated Date Inactivated Comments 03/20/2017 10:07 AM 03/24/2017 5:23 PM
--- OUTSIDE RECORDS SUMMARY | 2025-06-17 15:19 | XMS_ITS | Referral Summary ---
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
--- OUTSIDE RECORDS SUMMARY | 2025-06-17 15:19 | XMS_ITS | Clinical Summary ---
Author Organization [facility] [facility] Address [address] [facility] [place] [address] Care Team Providers Care Supervisor Prep Name Role Phone Unavailable Primary Care Provider Unavailabl e Source Comments [facility] [facility],non-owned Affiliates and Associated Physician Practices is amultiple site organization consisting of ambulatory clinics and hospital sitesin [place], [place], [place] and [place]. This disclosure is being madepursuant to the Care Everywhere program and may not contain all information available regarding this patient. Last updated 18.[facility] Allergies No known active allergies Medications * Be aware that medications may not be up to date on this document. Alwaysverify current medications with the patient. apixaban (Eliquis) 5 MG tablet Take 1 (one) tablet by mouth 2 times daily 60 tablet 6 06/02/2024 Active levETIRAcetam (Keppra) 500 MG tablet Take 1 (one) tablet by mouth 2 times daily 60 tablet 6 06/02/2024 Active atorvastatin (Lipitor) 80 MG tablet Take 1 (one) tablet by mouth at bedtime 30 tablet 6 06/02/2024 Active Active Problems Problem Noted Date Diagnosed Date Dural sinus thrombosis 05/29/2024 Social History Tobacco Use Types Packs/Day Years Used Date Smoking Tobacco: Former Cigarettes Passive Smoke Exposure: Past Smokeless Tobacco: Former Tobacco Cessation:Counseling Given: No AUDIT-C Answer Date Recorded Q1: How often do you have a drink containing alc ohol? Monthly or less 05/30/2024 Q2: How many drinks containi ng alcohol do you have on a typical day when you are drinking? 3 or 4 05/30/2024 Q3: How often do you have si x or more drinks on one occasion? Never 05/30/2024 Overall Financial Resource Strain (CARDIA) Answe r Date Recorded How hard is it for you to pa y for the very basics like food, housing, medical care, and heating? Not hard at all 05/30/2024 [facility] of Occupat ional Health - Occupational Stress Questionnaire Answer Date Recorded Do you feel stress - tense, restless, nervous, or anxious, or unable to sleep at night because your mind is troubled all the time - these days? Not at all 05/30/2024 Hunger Vital Sign Answer Date Recorded Within the past 12 months, y ou worried that your food would run out before you got the money to buy more. Never true 05/30/20 24 Within the past 12 months, t he food you bought just didn't last and you didn't have money to get more. Never true 05/30/2024 PRAPARE - Transportation Answer Date Re corded In the past 12 months, has l ack of transportation kept you from medical appointments or from getting medications? No 05/13 In the past 12 months, has l ack of transportation kept you from meetings, work, or from getting things needed for daily living? No 05/30/2024 Housing Stability Vital Sign Answer Oliver e Recorded In the last 12 months, was t here a time when you were not able to pay the mortgage or rent on time? No 05/30/2024 In the last 12 months, how many places have you lived? 1 05/30/2024 In the last 12 months, was t here a time when you did not have a steady place to sleep or slept in a m[facility]p (including now)? 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 Gender Identity Not on file Sexual Orientation Not on file Last Filed Vital Signs Vital Sign Reading Time Taken Comments Blood Pressure 150/85 06/02/2024 11:46 AM CDT Pulse 87 06/02/2024 11:46 AM CDT Temperature 36.6 C (97.8 F) 06/02/2024 8:01 AM CDT Respiratory Rate 7 06/02/2024 8:38 AM CDT Oxygen Saturation 96% 06/02/2024 11: 46 AM CDT Inhaled Oxygen Concentration - - Weight 117.5 kg (258 lb 15.9 oz) 05/30/2024 6:29 PM CDT Height 180.3 cm (5' 10.98 ) 05/30/2024 6:29 PM C DT Body Mass Index 36.14 05/30/2024 6:29 PM CDT Plan of Treatment Health Maintenance Due Date Last Done Comments MEDICARE AWV 12 MONTHS 1982 HIV SCREENING 1997 HEPATITIS C SCREENING 02/20/2000 DTAP/TDAP/TD VACCINES (1 - Tdap) 2001 HEPATITIS B VACCINE (1 of 3 - 19+ 3-dose series) 2001 HPV VACCINE (1 - 3-dose SCDM series) 2009 COVID-19 VACCINE (1 - 2023-2 5 season) 2024 DEPRESSION SCREENING 11/13/2024 INFLUENZA VACCINE (#1) 2025 ZOSTER VACCINE (1 of 2) 02/25/2032 HIB VACCINE Aged Out No longer eligi ble based on patient's age to complete this topic MENINGOCOCCAL (Group B) VACC INE SHARED DECISION-MAKING Aged Out No longer eligibl e based on patient's age to complete this topic MENINGOCOCCAL GROUPS A/C/Y/W VACCINE Aged Out No longer eligible b ased on patient's age to complete this topic PNEUMOCOCCAL VACCINE Aged Out No long er eligible based on patient's age to complete this topic Insurance MEDICARE [facility] [address] Advance Directives * Full Code (Latest Code Status on File) Date Activated Date Inactivated Comments 05/30/2024 2:34 AM 06/02/2024 2:40 PM
--- OUTSIDE RECORDS SUMMARY | 2025-06-17 15:19 | XMS_ITS | Encounter Summary ---
Author Organization [facility] Address 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
--- OUTSIDE RECORDS SUMMARY | 2025-06-17 15:19 | XMS_ITS | Encounter Summary ---
Author Organization [facility] Address [address] [place] [address] Care Team Providers Care Embroidery Worker Name Role Phone Unavailable Primary Care Provider Unavailabl e Reason for Visit * Reason Comments Medication Refill Encounter Details Date Type Department Care Team (Late st Contact Info) Description 05/09/2019 Refill [facility] - [facility] [id number] [facility] [address] [place] [address] Laurence Machuca MD [address] 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 * Telephone Encounter - Louisa Pascual - 05/17/2019 9:43 AM CDT Called pt to ask if he has had labs done for Tecfidera. No labs, No refill Pt must get labs every 3 months. No answer left voicemail for pt to call office back. * Telephone Encounter - Donny Bosch - 05/10/2019 10:18 AM CDT Patient has not seen you since 01-31-18 requesting Tecfidera RX. No labs, No MRI he would need to make appointment * Telephone Encounter - Louisa Pascual - 05/09/2019 3:39 PM CDT MS Medication. documented in this encounter Plan of Treatment Not on file documented as of this encounter Visit Diagnoses Diagnosis Multiple sclerosis ([facility]) Multiple sclerosis documented in this encounter Additional Health Concerns Infection Onset Date Last Indicated Resolved Time R/O COVID-19 06/08/2021 06/08/2021 06/08/2021 3:38 AM CDT COVID-19 06/08/2021 06/08/2021 06/28/2021 1:16 AM CDT documented as of this encounter
--- OUTSIDE RECORDS SUMMARY | 2025-06-17 15:19 | XMS_ITS | Encounter Summary ---
Author Organization [facility] Address 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
--- OUTSIDE RECORDS SUMMARY | 2025-06-17 15:19 | XMS_ITS | Encounter Summary ---
Author Organization [facility] Address 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
--- NOTE | 2025-06-17 16:02 | CTR_ITS ---
PROCEDURE INFORMATION: Exam: CT Head Without Contrast Exam date and time: 06/17/2025 4:12 PM Age: 45 years old Clinical indication: Pain; Headache not specified; Additional info: Altered mentation w h/o hemorrhagic CVA TECHNIQUE: Imaging protocol: Computed tomography of the head without contrast. Radiation optimization: All CT scans at this facility use at least one of these dose optimization techniques: automated exposure control; mA and/or kV adjustment per patient size (includes targeted exams where dose is matched to clinical indication); or iterative reconstruction. COMPARISON: MR head wo con* [id number] 03/12/2025 7:08 AM RADIATION DOSE METRICS: Total DLP (mGy-cm): 1172.88 FINDINGS: Brain: Left parietal periventricular white matter hypodensity is unchanged. A few small subcortical hypodensities are, also present on prior imaging. No mass effect or midline shift. No intracranial hemorrhage. Cerebral ventricles: No ventriculomegaly. Pituitary gland and sella: Partial empty sella appearance again noted. Paranasal sinuses: Visualized sinuses are unremarkable. No fluid levels. Mastoid air cells: Visualized mastoid air cells are well aerated. Bones: Unremarkable. No acute fracture. Soft tissues: Unremarkable. CT/CT head wo con* [id number] IMPRESSION: 1. No acute intracranial abnormality identified. 2. A few small periventricular and subcortical white matter hypodensities are unchanged from the prior exam.
[2025-06-17 16:18] LABS: Glucose Urine UA Negative (Normal); Nitrate Urine Negative (Negative); Specific Gravity, Urine 1.018 (1.005-1.030)
[2025-06-17 16:23] LABS: Add Urine Microscopic? YES
[2025-06-17 16:25] LABS: PCP Screen Urine Negative (Negative)
[2025-06-17 16:26] LABS: Rapid Strep A Test Negative (Negative)
--- NOTE | 2025-06-17 16:26 | ED_ITS ---
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 This occurred 2 nights ago. Patient's notes that he was outside with her while she was on the phone, and stated he was going to lay down. She stated that he went inside, started to fold the close on his side of the bed, and then looked at the close like he had no idea how to fold it. He finally laid down for a little while, and she thought this would help improve his symptoms. Patient states he has had waxing and waning symptoms. 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 He denies any visual disturbances, dysarthria is present according to his that is, go. No dysphagia, sensation changes, no neurological changes. He denies fevers. He was diagnosed with severe sleep apnea on previous sleep study 05/07. Patient states that the sleep study did a home the monitor, was not plugged in correctly. Patient stated he utilized his CPAP mask for the first time last p.m. Associated symptoms: Reports headache(s); Deny chest pain or nausea Related Data Home Medications ?Medication ?Instructions ?Recorded ?Confirmed acetaminophen 500 mg tablet 500 mg PO Q6H PRN Pain 03/19/25 Previous Rx's ?Medication ?Instructions ?Recorded apixaban 5 mg tablet (Eliquis) 5 mg PO BID #180 tabs 0 12/30/24 galcanezumab-gnlm 120 mg/mL 240 mg (2 mL) SUBCUT ONCE #2 mL 03/06/25 subcutaneous syringe (Emgality) galcanezumab-gnlm 120 mg/mL 120 mg SUBCUT Q30D 90 days #3 mL 03/17/25 subcutaneous syringe (Emgality) Allergies Allergy/AdvReac Type Severity Reaction Status Date / Time prednisone Allergy Intermediate ADR-Chest Verified 03/19/25 15:14 Pain Gadolinium-Containing Allergy ADR-Vomitin Verified 03/19/25 15:14 Contrast Medi g latex Allergy ALGY-Rash Verified 03/19/25 15:14 steroids Allergy Intermediate Unknown Uncoded 03/19/25 15:14 Review of Systems 2 General: Reports: 10 or more systems reviewed and unremarkable except in HPI and below Const: Denies: fever(s) or chills Eyes: Denies: change in vision or blurry vision ENMT: Denies: throat pain or mouth pain Card: Denies: chest pain or palpitations Resp: Denies: dyspnea or productive cough GI: Denies: abdominal pain or nausea : Denies: flank pain or difficulty urinating Musc: Denies: neck pain or back pain Skin/Breast: Denies: rash or pruritus Neuro: Reports: headache(s), confusion, behavioral changes and Slurred speech present; Denies: numbness in extremities, weakness in extremities, lack of coordination or dizziness Psych: Denies: anxiety or depression Endo: Denies: polyuria or polydipsia All/Imm: Denies: urticaria or throat swelling PFSH ED 2 PFSH: Medical History (Updated 06/17/25 @ 17:32 by YARIEL Sherwood) Chronic migraine without aura, intractable, with status migrainosus Thrombophlebitis of superficial veins of left lower extremity Thrombosis of lateral venous sinus Occipital neuralgia of left side Focal seizure Multiple sclerosis Surgical History Finger amputation, 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 Family History Father Pancreatic cancer Mother Renal failure Social History Smoking and tobacco/nicotine status: never used tobacco/nicotine Second hand smoke exposure: Yes (during childhood) Alcohol intake: current Alcohol intake frequency: few times a month Alcohol type: beer NIH stroke score 2 NIHSS: Level Of Consciousness - 1a: 0 Level Of Consciousness Questions - 1b: Both Correct Level Of Consciousness Commands - 1c: Both Correct Best Gaze - 2: Normal Visual Gray - 3: No Visual Loss Facial Palsy - 4: N ormal Motor Arm Right - 5: No Drift Motor Arm Left - 5: No Drift Motor Leg Right - 6: No Drift Motor Leg Left - 6: No Drift Limb Ataxia - 7: A bsent Sensory - 8: Normal Best Language - 9: No Aphasia Dysarthia - 10: Normal Extinction And Inattention - 11: 0 Score: Total Score: 0 Physical Exam 2 Const: COMMON NORMALS: no acute distress, average body habitus, patient oriented x3, no limitations, healthy appearing, alert and well nourished O RIENTATION/CONSCIOUSNESS: Yes oriented to person, Yes oriented to place and Yes oriented to time HENMT: COMMON NORMALS: normocephalic and atraumatic HEAD & SCALP: n ormocephalic and atraumatic Neck/C-Spine: COMMON NORMALS: full ROM, no lymphadenopathy and supple Lymph: LYMPHATIC: no lymphadenopathy noted and no lymphedema noted Chest: COMMONS NORMALS: normal inspection of the chest and normal palpation of the breasts BREAST/AXILLA PALPATION: Yes normal palpation of the breasts Resp: COMMON NORMALS: normal respiratory effort and clear to auscultation bilaterally AUSCULTATION: clear to auscultation bilaterally Cardio: COMMON NORMALS: regular rate and regular rhythm RATE: regular rate RHYTHM: regular rhythm GI: COMMON NORMALS: Normal to inspection, nondistended, normoactive bowel sounds present, Soft to palpation, non-tender and No hepatosplenomegaly present PALPATION: Yes Soft to palpation and Yes No hepatosplenomegaly present : COMMON NORMALS: Yes no CVA tenderness BLADDER/KIDNEY EXAM: Yes no CVA tenderness Back/Pelvis: COMMON NORMALS: no CVA tenderness Extremity: COMMON NORMALS: normal to inspection, full ROM and capillary refill normal Neuro: COMMON NORMALS: patient oriented x3, CN's II-XII intact bilaterally, moves all extremities, no focal motor deficits and no sensory deficits noted SENSORIUM/ORIENTATION: Yes alert, Yes oriented to person, Yes oriented to place, Yes oriented to time, No Orientation impaired and No stuporous Psych: COMMON NORMALS: mental status grossly normal, Normal thought process present and speech normal SPEECH: Yes normal speech THOUGHT PROCESS: N ormal thought process present Skin: COMMON NORMALS: no rashes or lesions noted and no wounds GENERAL SKIN EXAM: no rashes or lesions noted Course 2 Vital Signs: Vital signs: Vital Signs Temperature 98.0 F 06/17/25 15:18 Pulse Rate 73 06/17/25 17:00 Respiratory Rate 16 06/17/25 15:18 Blood Pressure 138/95 06/17/25 17:00 Pulse Oximetry 96 06/17/25 17:00 Oxygen Delivery Me thod Room Air 06/17/25 17:00 MDM - Neuro Symptoms/Deficit Medical Decision Making Patient relates he had difficulty with his first use of CPAP last night. He stated about a bloody nose on his right side. He does not believe utilizing his CPAP helped his issues. Denies any current confusion. states, come and go dysarthria. Discussed with patient and . Patient has differentials including seizure disorder, severe sleep apnea, TIA. Discussed with patient/ to take baby aspirin, call tomorrow Dr. Amanda's office for follow-up to see if EEG and MRI would need to be repeated. They will attempt to titrate CPAP so it is more tolerable to patient and he is able to sleep with it. He did have epistaxis on his right nare last p.m. encouraged Greenlee spray and lubricant to his nare. All of his questions and his 's questions answered to their satisfaction. Discussed with them that the workup is essentially negative, however this absolutely needs further workup. Medical Records I reviewed the patient's medical records. Lab Data I reviewed the patient's lab results. 06/17/25 16:29 06/17/25 16:[address] 06/17/25 16:02 IMPRESSION: 1. No acute intracranial abnormality identified. 2. A few small periventricular and subcortical white matter hypodensities are unchanged from the prior exam. Laboratory Results WBC 8.82 10^3/uL (3.29-11.43) 06/17/25 16: RBC 4.97 10^6/uL (3.85-5.65) 06/17/25 16: Hgb 15.30 g/dL (11.27-16.99) 06/17/25 16: Hct 44.0 % (37-53) 06/17/25 16: MCV 88.5 fl (82-101) 06/17/25 16: MCH 30.8 pg (27-33) 06/17/25 16: MCHC 34.8 g/dL (30-55) 06/17/25 16: RDW 13.2 % (12.1-15.1) 06/17/25 16: Plt Count 187 10^3/cmm (157-399) 06/17/25 16: MPV 9.9 fL (7.4-10.4) 06/17/25 16: Neut % (Auto) 77.6 % 06/17/25 16: Lymph % (Auto) 11.8 % 06/17/25 16: [place] % (Auto) 6.8 % 06/17/25 16: Eos % (Auto) 3.1 % 06/17/25 16: Baso % (Auto) 0.5 % 06/17/25 16: Neut # (Auto) 6.85 10^3/uL (1.8-7.7) 06/17/25 16: Lymph # (Auto) 1.0 10^3/uL (0.8-4.8) 06/17/25: [place] # (Auto) 0.6 10^3/uL (0.2-0.9) 06/17/25: Eos # (Auto) 0.3 10^3/uL (0.0-0.8) 06/17/25: Baso # (Auto) 0.0 10^3/uL (0.0-0.1) 06/17/25: Nucleated RBC % (auto) 0 % 06/17/25 Nucleated RBCs # 0.0 /100WBC 06/17/25 16: Sodium 142 mmol/L (136-145) 06/17/25: Potassium 4.1 mmol/L (3.5-5.1) 06/17/25: Chloride 105 mmol/L (98-107) 06/17/25 16: Carbon Dioxide 27 mmol/L (22-29) 06/17/25 16: Anion Gap 14.1 (5-19) 06/17/25: BUN 9 mg/dL (6-20) 06/17/25: Creatinine 0.9 mg/dL (0.7-1.2) 06/17/25 16: GFR Calculation 92.1 mL/min (90-130) 06/17/25 16: Glucose 111 mg/dL (65-115) 06/17/25: Calculated Osmolality 293 mOsm/kg (285-295) 06/17/25 16:29 Lactic Acid 1.1 mmol/L (0.5-2.2) 06/17/25 16:29 Calcium 9.0 mg/dL (8.5-10.5) 06/17/25 16:29 Total Bilirubin 0.4 mg/dL (0.15-1.2) 06/17/25 16:29 AST 28 U/L (0-40) 06/17/25 16:29 ALT 32 U/L (0-41) 06/17/25 16:29 Alkaline Phosphatase 101 U/L (40-130) 06/17/25 16:29 Ammonia 35 umol/L (16-60) 06/17/25 16:29 Total Protein 7.3 g/dL (6.6-8.7) 06/17/25 16: Albumin 4.0 g/dL (3.5-5.2) 06/17/25 16:29 Globulin 3.3 g/dL (1.3-4.6) 06/17/25 16:29 Urine Color Yellow (Yellow) 06/17/25 16:07 Urine Appearance Clear (CLEAR) 06/17/25 16:07 Urine pH 6.0 (5-7) 06/17/25 16:07 Ur Specific [place] 1.018 (1.005-1.030) 06/17/25 16:07 Urine Protein Negative (Negative) 06/17/25 16:07 Urine Glucose (UA) Negative (Normal) 06/17/25 16:07 Urine Ketones Negative (Negative) 06/17/25 16:07 Urine Blood Negative (Negative) 06/17/25 16:07 Urine Nitrate Negative (Negative) 06/17/25 16:07 Urine Bilirubin Negative (Negative) 06/17/25 16:07 Urine Urobilinogen 1.0 mg/dL (Negative) 06/17/25 16:07 Ur Leukocyte Esterase Negative (Negative) 06/17/25 16:07 Urine RBC 0-2 /hpf (0-2) 06/17/25 16:07 Urine WBC 0-5 /hpf (0-5) 06/17/25 16:07 Ur Squamous Epith Cells 0-5 /hpf (0-5) 06/17/25 16:07 Amorphous Sediment Not Reportable 06/17/25 16:07 Urine Bacteria None seen /hpf (NONE) 06/17/25 16:07 Hyaline Casts 0.40 /lpf 06/17/25 16:07 Urine Opiates Screen Negative ng/mL (Negative) 06/17/25 16:07 Ur Barbiturates Screen Negative ng/mL (Negative) 06/17/25 16:07 Ur Phencyclidine Scrn Negative ng/mL (Negative) 06/17/25 16:07 Ur Amphetamines Screen Negative ng/mL (Negative) 06/17/25 16:07 U Benzodiazepines Scrn Negative ng/mL (Negative) 06/17/25 16:07 Urine Cocaine Screen Negative ng/mL (Negative) 06/17/25 16:07 U Marijuana (THC) Screen Negative ng/mL (Negative) 06/17/25 16:07 Ethyl Alcohol < 10 mg/dL (0-10) 06/17/25 16:29 Influenza A (PCR) Negative (Negative) 06/17/25 16:07 Influenza Type B (PCR) Negative (Negative) 06/17/25 16:07 RSV (PCR) Negative (Negative) 06/17/25 16:07 SARS-CoV-2 (PCR) Negative (Negative) 06/17/25 16:07 Group A Strep Rapid Negative (Negative) 06/17/25 16:07 All radiology interpretation(s) finalized by discharge Discharge Plan Discharge Patient Disposition: Home Clinical Impression: Delirium Condition: Stable Prescriptions: No Action Emgality Syringe 120 mg/mL syringe 240 mg SUBCUT ONCE Qty: 2 0RF Rx Instructions: loading dose Eliquis 5 mg tablet 5 mg PO BID Qty: 180 1RF Rx Instructions: 340B Emgality Syringe 120 mg/mL syringe 120 mg SUBCUT Q30D 90 Days Qty: 3 3RF acetaminophen 500 mg Tablet 500 mg PO Q6H PRN (Reason: Pain) Discharge Orders: Discharge ED (Routine); Ordered 06/17/25 Ordered By: Richa Washington Referrals: Shirley Amanda MD [Physician, Neurology] Fatou Siddiqui PA [Primary Care Provider, Physicians Chair Pad Maker] Discharge Diet: Low Salt Patient Instructions: Acute Delirium (ED), Patient Portal & Del Instructions Activity Restrictions/Additional Instructions: Take a coated baby aspirin daily. Call your neurologist to follow-up. You may need to repeat your EEG and discuss epileptic medications again. As well, she may want to do an MRI. Return to ED if this occurs again?immediately. No other findings were noted today. Print Language: Mozambican Coding Level of Care Code ED [employer] Director [employer]
[2025-06-17 16:52] LABS: Hematocrit 44.0 % (37-53); Hemoglobin 15.30 g/dL (11.27-16.99); Mean Corpuscular HGB Conc 34.8 g/dL (30-55); Mean Corpuscular Hemoglobin 30.8 pg (27-33); Mean Corpuscular Volume 88.5 fl (82-101); Nucleated Red Blood Cells % 0 %; Platelet Count 187 10^3/cmm (157-399); Red Blood Count 4.97 10^6/uL (3.85-5.65); White Blood Count 8.82 10^3/uL (3.29-11.43)
[2025-06-17 16:55] LABS: Respiratory Syncytial Virus Ce NEGATIVE (Negative); SARS-CoV-2 PCR NEGATIVE (Negative)
[2025-06-17 17:00] VITALS: BP 138/95; PULSE 73; O2SAT 96
[2025-06-17 17:14] LABS: Ammonia 35 umol/L (16-60)
[2025-06-17 17:17] LABS: Alanine Aminotransferase 32 U/L (0-41); Albumin Level 4.0 g/dL (3.5-5.2); Alkaline Phosphatase 101 U/L (40-130); Anion Gap 14.1 (5-19); Aspartate Amino Transferase 28 U/L (0-40); Blood Urea Nitrogen 9 mg/dL (6-20); Calcium 9.0 mg/dL (8.5-10.5); Carbon Dioxide 27 mmol/L (22-29); Chloride 105 mmol/L (98-107); Creatinine Clr Calc Pharmacy 144.3851; Globulin 3.3 g/dL (1.3-4.6); Glucose 111 mg/dL (65-115); Osmolality Calculated 293 mOsm/kg (285-295); Potassium 4.1 mmol/L (3.5-5.1); Sodium 142 mmol/L (136-145); Total Protein 7.3 g/dL (6.6-8.7)
[2025-06-17 17:18] LABS: Alcohol Level < 10 mg/dL (0-10); Lactic Sepsis W/Reflex 1.1 mmol/L (0.5-2.2)
[2025-06-17 17:56] VITALS: BP 165/107; PULSE 90; O2SAT 98
== END 2025-06-17 17:56 | disposition home or self-care (01) ==
PROVIDERS: Emergency Provider Physician Assistant; PCP Physician Assistant
DX: R41.0 Disorientation, unspecified (principal); Z11.52 Encounter for screening for COVID-19; Z79.01 Long term (current) use of anticoagulants; Z86.73 Personal history of transient ischemic attack (TIA), and cerebral infarction without residual deficits
CPT/HCPCS: 36415; 70450; 80053; 80306; 80307; 81001; 82140; 83605; 85025; 87081; 87637; 87880; 93005; 99284

== ENCOUNTER 2025-06-24 15:58 | Oncology outpatient (recurring) (ONCR) | payer BC, MEDICARE, SELFPAY ==
--- NOTE | 2025-06-24 16:00 | MR_ITS ---
WS: [email or web address] MRI BRAIN WITHOUT CONTRAST HISTORY: I63.9 - Cerebral infarction, unspecified COMPARISON: 03/12/2025, CT head 06/17/2025 TECHNIQUE: Diffusion imaging, multiplanar T1, T2 and FLAIR imaging obtained. Motion artifact on several sequences. No evidence for acute infarct or hemorrhage. Ching-white matter differentiation is normal. Scattered T2 and FLAIR signal hyperintensities. Similar distribution to the prior MRI from 03/12/2025 with no progression. No large territory infarct. Only mild cerebral and cerebellar volume loss. No hippocampal atrophy. Ventricles and extra-axial spaces are normal. No inferior displacement of cerebellar tonsils. The sella turcica and pituitary gland are unremarkable. Dural venous sinuses and [place] of [place] demonstrate no abnormality on this unenhanced studies. Paranasal sinuses: Clear. Mastoid air cells: Normal. Calvarium and scalp: Intact. MR/MR head wo con* [id number] IMPRESSION: 1. No acute infarct. Normal diffusion imaging. 2. Mild atrophy and mild small vessel changes. Similar to the prior study of . 3. Mild cerebral and cerebellar atrophy. No hippocampal atrophy.
== END 2025-07-13 23:59 | disposition home or self-care (01) ==
LOC: ONCMED 15:59
PROVIDERS: PCP Physician Assistant; Visit Provider Specialist
DX: Z53.9 Procedure and treatment not carried out, unspecified reason (principal); K86.89 Other specified diseases of pancreas; K76.0 Fatty (change of) liver, not elsewhere classified; R10.9 Unspecified abdominal pain; G35 Multiple sclerosis; G08 Intracranial and intraspinal phlebitis and thrombophlebitis; I63.9 Cerebral infarction, unspecified; N20.0 Calculus of kidney; Z80.0 Family history of malignant neoplasm of digestive organs; R05.9 Cough, unspecified; R93.7 Abnormal findings on diagnostic imaging of other parts of musculoskeletal system; I82.409 Acute embolism and thrombosis of unspecified deep veins of unspecified lower extremity
CPT/HCPCS: 70551

== ENCOUNTER → 2025-06-30 14:01 | Outpatient (BNVA) | payer MEDICARE, BC, SELFPAY | PROVIDERS: PCP Physician Assistant; Visit Provider Specialist | DX: G35 Multiple sclerosis (principal); G08 Intracranial and intraspinal phlebitis and thrombophlebitis; R56.9 Unspecified convulsions; R03.0 Elevated blood-pressure reading, without diagnosis of hypertension; M48.062 Spinal stenosis, lumbar region with neurogenic claudication; K76.0 Fatty (change of) liver, not elsewhere classified; G43.711 Chronic migraine without aura, intractable, with status migrainosus; K86.89 Other specified diseases of pancreas; G31.84 Mild cognitive impairment of uncertain or unknown etiology; G47.33 Obstructive sleep apnea (adult) (pediatric) | CPT/HCPCS: 96116; 99215 ==

== ENCOUNTER 2025-10-27 14:40 | Oncology outpatient (recurring) (ONCR) | payer BC, MEDICARE, SELFPAY ==
--- NOTE | 2025-10-27 14:30 | MR_ITS ---
WS: [email or web address] MRI CERVICAL SPINE NONCONTRAST HISTORY: G35 - Multiple sclerosis COMPARISON: 09/13/2022 Technique: Multiplanar, multisequence noncontrast imaging of the cervical spine. Straightening of the normal cervical lordosis. Straightening is most significant at C4-5. Disc spaces are slightly narrowed and desiccated. No fractures or marrow edema. Increased linear signal in the upper thoracic cord at the T2-3 level similar to the prior study. Very subtle area of increased T2 signal in the cervical cord centered at C4. Craniocervical junction, C1 and C2 relationship, odontoid process and soft tissues are normal. C2-C3: Normal. C3-C4: Mild disc bulging and facet arthritis. Small foraminal osteophytes. Mild foraminal stenosis. C4-C5: Osteophytic ridging with annular disc bulging. Moderate LEFT disc osteophyte complex and a smaller disc osteophyte complex on the RIGHT. Mild central with severe LEFT and moderate RIGHT foraminal stenosis. Stenosis and disc osteophyte disease has progressed since 09/13/2022. C5-C6: Osteophytic ridging with a central disc protrusion. Mild central and bilateral foraminal stenosis. C6-C7: Small bilateral foraminal osteophytes. Mild foraminal stenosis. Very small central disc protrusion. Mild facet arthritis. C7-T1: No stenosis. Paraspinal soft tissue are normal. Small cervical chain lymph nodes. MR/MR cervical spin wo con* [id number] IMPRESSION: 1. Very subtle area of increased T2 signal in the cervical cord at C4. May be a subtle area of demyelination versus artifact. 2. Linear strand-like T2 signal in the upper thoracic cord at the T2-3 level. Noted to be a syrinx on a prior MRI from 04/24/2024. 3. Moderate size LEFT foraminal disc osteophyte complex and a smaller disc ost eophyte complex on the RIGHT. Mild central with severe LEFT and moderate RIGHT foraminal stenosis. Stenosis and the disc osteophyte complexes have progressed since 09/13/2022. 4. Mild foraminal stenosis at C3-4 and C6-7. 5. Small central disc protrusion at C5-6. Mild central and bilateral foraminal stenosis.
--- NOTE | 2025-10-27 15:15 | MR_ITS ---
WS: [email or web address] MRI BRAIN WITHOUT CONTRAST HISTORY: I63.9 - Cerebral infarction, unspecified COMPARISON: 06/24/2025, CT head 06/17/2025 TECHNIQUE: Diffusion imaging, multiplanar T1, T2 and FLAIR imaging obtained. Normal diffusion imaging. Increased T2 and FLAIR signal closely associated with the corpus callosum and lateral ventricles. Some of these signal abnormalities are perpendicular to the corpus callosum. Similar to the prior study. No large prior infarct. Mild small vessel changes. Visualized upper cervical cord is negative. Ventricles and extra-axial spaces are normal. No inferior displacement of cerebellar tonsils. The sella turcica and pituitary gland are unremarkable. Dural venous sinuses and [place] of Garcia demonstrate no abnormality on this unenhanced studies. Paranasal sinuses: Small amount of fluid in the posterior RIGHT nasal cavity. Sinuses are clear. Mastoid air cells: Normal. Calvarium and scalp: Intact. MR/MR head wo con* [id number] IMPRESSION: 1. Normal diffusion imaging. No acute infarct. 2. Scattered patchy supratentorial white matter changes consistent with prior diagnosis of demyelination. These white matter lesions are stable since 07/03/20 24. 3. No acute hemorrhage. 4. No hydrocephalus.
== END 2025-11-12 23:59 | disposition home or self-care (01) ==
LOC: ONCMED 14:41
PROVIDERS: PCP Physician Assistant; Visit Provider Specialist
DX: Z53.9 Procedure and treatment not carried out, unspecified reason (principal); K86.89 Other specified diseases of pancreas; K76.0 Fatty (change of) liver, not elsewhere classified; R10.9 Unspecified abdominal pain; G35 Multiple sclerosis; G08 Intracranial and intraspinal phlebitis and thrombophlebitis; I63.9 Cerebral infarction, unspecified; N20.0 Calculus of kidney; Z80.0 Family history of malignant neoplasm of digestive organs; R05.9 Cough, unspecified; R93.7 Abnormal findings on diagnostic imaging of other parts of musculoskeletal system; I82.409 Acute embolism and thrombosis of unspecified deep veins of unspecified lower extremity; G31.89 Other specified degenerative diseases of nervous system; R93.0 Abnormal findings on diagnostic imaging of skull and head, not elsewhere classified; G31.84 Mild cognitive impairment of uncertain or unknown etiology
CPT/HCPCS: 70551; 72141

== ENCOUNTER 2025-10-28 13:04 | Outpatient (CLI) | payer BC, MEDICARE, SELFPAY ==
--- NOTE | 2025-10-28 13:00 | MR_ITS ---
WS: [email or web address] MRI LUMBAR SPINE NONCONTRAST HISTORY: G35 - Multiple sclerosis COMPARISON: 07/02/2024 TECHNIQUE: Sagittal and axial multisequence imaging is submitted. No acute compression fractures. Normal lumbar alignment with no compression fractures or marrow edema. Disc spaces and vertebral body heights are well-preserved. Conus terminates normally at L1-2 disc level. L1-L2: Normal. L2-L3: Mild bilateral facet arthritis. No stenosis. L3-L4: Mild to moderate bilateral facet arthritis. Shallow LEFT foraminal disc protrusion with mild foraminal stenosis. Mild impingement upon the exiting LEFT L3 nerve root. No change. L4-L5: Central to LEFT paracentral disc protrusion with mild central stenosis. There is disc contacting the traversing L5 nerve roots, LEFT greater than RIGHT. Disc protrusion may be slightly larger than on the prior study. Mild foraminal stenosis. L5-S1: Moderate size RIGHT paracentral disc protrusion impinges upon the RIGHT S1 nerve root in the subarticular recess. There is contact on the S1 nerve roots but RIGHT much greater than LEFT. Mild facet arthritis. Mild RIGHT foraminal stenosis. Paravertebral soft tissues are normal. MR/MR lumbar spine wo con* [id number] IMPRESSION: 1. LEFT paracentral disc protrusion at L4-5 contacts the traversing L5 nerve r oots, LEFT greater than RIGHT. Mild central stenosis. Disc is slightly increase d in size. 2. Large RIGHT paracentral disc protrusion at L5-S1 impinging upon the diann ing nerve roots about the RIGHT much greater than LEFT. Disc extends into the s ubarticular recess. No change. Mild RIGHT foraminal stenosis at L5-S1. 3. Small LEFT foraminal disc protrusion at L3-4 with mild impingement upon the exiting LEFT L3 nerve root. Stable. 4. Facet joint arthritis from L2-3 to L5-S1.
--- NOTE | 2025-10-28 13:45 | MR_ITS ---
WS: [id number] MRI THORACIC SPINE noncontrast HISTORY: G35 - Multiple sclerosis COMPARISON: 04/24/2024 TECHNIQUE: Multiplanar sequences are performed in sagittal and axial planes. Mild increase in thoracic kyphosis. 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 Syrinx begins along the superior endplate of T4 and extends to the superior endplate of T8. Very similar to the prior study. No cord atrophy or enlargement. Disc osteophyte contacting the ventral cervical cord at C4-5. The spaces are narrowed and desiccated. No acute fracture. T1-2: Normal. T2-3: Normal. T3-4: Normal. T4-5: Normal. T5-6: Mild bilateral facet arthritis. T6-7: Mild bilateral facet arthritis. T7-8: LEFT paracentral disc protrusion and facet arthritis. Mild foraminal stenosis. T8-9: Moderate size LEFT paracentral disc protrusion with contact on the thoracic cord. Mild facet arthritis and foraminal stenosis. T9-10: Small LEFT paracentral disc protrusion with moderate facet arthritis. Mild foraminal stenosis. T10-11: Moderate bilateral facet arthritis and foraminal stenosis. T11-12: Normal. MR/MR thoracic spin wo con* [id number] IMPRESSION: 1. Central increased T2 signal in the thoracic cord consistent with a syrinx. Syrinx extends from T3 to the superior endplate of T8. 2. No signal changes from demyelination. 3. LEFT paracentral disc protrusions at T7-8, T8-9 and T9-10 similar to the pr ior studies. 4. Moderate facet arthritis and foraminal stenosis at T10-11.
== END 2025-10-28 13:05 | disposition home or self-care (01) ==
LOC: RAD 13:08
PROVIDERS: PCP Physician Assistant; Visit Provider Specialist
DX: G35.D Multiple sclerosis, unspecified (principal); R56.9 Unspecified convulsions; M48.062 Spinal stenosis, lumbar region with neurogenic claudication; I63.9 Cerebral infarction, unspecified; M47.814 Spondylosis without myelopathy or radiculopathy, thoracic region; M51.24 Other intervertebral disc displacement, thoracic region; M48.04 Spinal stenosis, thoracic region; M51.04 Intervertebral disc disorders with myelopathy, thoracic region
CPT/HCPCS: 72146; 72148